=== PATIENT | female | born 1995 | race African-American/Black ===

== ENCOUNTER 2016-05-18 19:10 | Emergency (ER) | payer OTHER ==
[~2016-05-18 19:10] MED LIST: Iopamidol 370 76% 100 ML VIAL ONE
[2016-05-18 19:41] LABS: Bilirubin Negative (Negative); Blood, Urine Negative (Negative); Glucose, Urine (Dipstick) Negative (Negative); Ketone, Urine Negative (Negative); Nitrite Negative (Negative); Protein, Urine (Dipstick) Negative (Neg-Trace)
[2016-05-18 19:44] LABS: Bacteria/HPF Rare-Few HPF (None Seen); RBC/HPF None Seen HPF (0-3); WBC/HPF None Seen HPF (0-3)
[2016-05-18] MEDS ORDERED: Acetaminophen 500 MG TAB ONE (19:52)
[2016-05-18] MEDS ORDERED: Ondansetron ODT 4 MG TAB ONE (20:00)
[2016-05-18 20:37] LABS: #Basophils 0.1 thou/uL (0.0-0.2); #Eosinphils 0.5 thou/uL (0.0-0.7); #Lymphocytes 2.5 thou/uL (1.20-3.40); #Monocytes 0.4 thou/uL (0.11-0.59); #Neutrophils 1.8 thou/uL (1.40-6.50); %Basophils 2.3 % (0.0-1.0); %Eosinophils 8.6 % (0.0-10.0); %Lymphocytes 47.1 % (21.0-51.0); %Monocytes 7.6 % (0.0-10.0); Hematocrit 42.9 % (36.0-47.0); Mean Platelet Volume 6.7 fL (7.4-10.4); Red Blood Cell (RBC) Count 5.18 mill/uL (4.20-5.40); White Blood Cell (WBC) Count 5.4 thou/uL (4.8-10.8)
[2016-05-18 20:50] LABS: ALT (SGPT) 13 U/L (0-55); AST (SGOT) 15 U/L (5-34); Alkaline Phosphatase 87 U/L (40-150); Anion Gap 12 mmol/L (10-20); BUN (Urea Nitrogen) 10 mg/dL (7.0-18.7); Bilirubin, Total 0.4 mg/dL (0.2-1.2); Calc. Creatinine Clearance 0 mL/min (70-130); Calcium 9.2 mg/dL (7.8-10.44); Carbon Dioxide 22 mmol/L (22-29); Chloride 109 mmol/L (98-107); Estimated GFR-MDRD Greater than 90; Globulin 2.9 g/dL (2.4-3.5); Protein, Total 6.9 g/dL (6.0-8.3)
[2016-05-18] MEDS ORDERED: Sodium Chloride 0.9% 1,000 ML ONE (21:17)
--- NOTE | 2016-05-19 00:50 | ERRECORD ---
[facility] EMERGENCY RECORD HPI ABDOMINAL PAIN (21:42 JROB) CHIEF COMPLAINTS: Patient presents for evaluation of abdominal pain. HISTORIAN: History provided by patient, 21 year old female presents with mid abdominal pain that started yesterday evening, with nausea, vomiting and diarrhea. She reports urinary urgency. LOCATION FEMALE: Symptoms are localized, most severe periumbilical. QUALITY: aching. TIME COURSE: Gradual onset of symptoms. ASSOCIATED WITH FEMALE: No associated chills, Associated with diarrhea, No associated fever, Associated with nausea, No associated trauma, No associated recent travel, Associated with vomiting, No associated vaginal bleeding. RELIEVED BY: Patient's condition relieved by remaining still. EXACERBATED BY: Patient's condition exacerbated by movement. ROS (21:44 JROB) CONSTITUTIONAL: Historian denies chills, denies fever. EYES: Historian denies vision changes. ENT: Historian denies sore throat. CARDIOVASCULAR: Historian denies syncope. RESPIRATORY: Historian denies shortness of breath. GI: Historian reports abdominal pain, reports diarrhea, reports nausea, reports vomiting. GENITOURINARY FEMALE: Historian denies dysuria, denies vaginal bleeding. MUSCULOSKELETAL: Historian denies back pain. SKIN: Historian denies rash. NEUROLOGIC: Historian denies headache. HEMO/LYMPHATIC: Historian denies abnormal blood clotting. ALLERGIC/IMMUNOLOGIC: Historian denies frequent infections. NOTES: All systems reviewed, negative except as described above. PAST MEDICAL HISTORY MEDICAL HISTORY: Flu vaccine not up to date, Tetanus immunization up to date, No past medical history, Tetanus immunization up to date. (19:30 EPIE) FEMALE SURGICAL HISTORY: DNC, Surgical history of section. (19:30 EPIE) PSYCHIATRIC HISTORY: Psychiatric history includes, anxiety. (19:30 EPIE) SOCIAL HISTORY: Patient denies alcohol use, Patient denies drug use, Patient has no smoking history. (19:30 EPIE) FAMILY HISTORY: No known family hisotry, Family history is not significant, Family history is non-contributory to this case, Family history is non-contributory to this case. No known family hisotry, Family history is not significant, Family history is non-contributory to this case, Family history is non-contributory to this case. (19:30 EPIE) &a-1R&a+25V*p+0X*b7661J*c202B*c15G*c2P*p-0X&a-25V&a+1R Name: Melva White : 1995 F21 MedRec: [id number] AcctNum: [id number] Prepared: ThuMay 19, 2016 00:44 by Interface Page 1 of 4 pMD [facility] EMERGENCY RECORD NOTES: Nursing records reviewed, Agree with nursing records, Medication list reviewed. (21:45 JROB) KNOWN ALLERGIES No Known Drug Allergies CURRENT MEDICATIONS (19:30 EPIE) None VITAL SIGNS VITAL SIGNS: BP: 103/70, Pulse: 80, Resp: 16 (Non-Labored), Temp: 98.7 (Oral), O2 sat: 98 on Room Air, Time: 05/18/2016 19:26. (19:26 EPIE) BP: 98/61, Pulse: 71, Resp: 16 (Non-Labored), O2 sat: 100 on Room Air, Time: 05/18/2016 21:30. (21:30 EPIE) BP: 102/66, Pulse: 85, Resp: 16 (Non-Labored), O2 sat: 100 on Room Air, Time: 05/18/2016 22:00. (22:00 EPIE) BP: 93/52, Pulse: 84, Resp: 16 (Non-Labored), O2 sat: 100 on Room Air, Time: 05/18/2016 22:55. (22:55 EPIE) BP: 95/53, Pulse: 77, Resp: 16 (Non-Labored), O2 sat: 100 on Room Air, Time: 05/18/2016 23:30. (23:30 EPIE) BP: 100/63, Pulse: 80, Resp: 16, Temp: 98.6, Pain: 4, O2 sat: 100 on ra, Time: 05/19/2016 00:33. (ThuMay 19, 2016 00:33 EPIE) PHYSICAL EXAM (21:45 JROB) CONSTITUTIONAL: Vital Signs Reviewed, Patient afebrile, Pulse normal, Blood pressure, hypotensive, Respiratory rate normal, Patient appears non toxic. HEAD: Head exam normal, Head exam included findings of head atraumatic. EYES: Eye exam normal, Pupils equally round and reactive to light, Extraocular muscles intact. ENT: Pharynx exam normal, Mouth exam normal. NECK: Neck exam normal, no cervical adenopathy. RESPIRATORY CHEST: Breath sounds clear, No wheezing, No rales, No rhonchi. CARDIOVASCULAR: Cardiovascular assessment normal, Cardiovascular exam included findings of heart rate regular rate and rhythm, Heart sounds normal. ABDOMEN FEMALE: Abdominal exam included findings of abdomen tender, periumbilical, to the suprapubic region, mild intensity. BACK: Back exam normal, Back exam included findings of normal inspection, no costovertebral angle tenderness. UPPER EXTREMITY: Upper extremity exam normal, Upper extremity exam included findings of inspection normal, Motor strength normal, Sensation intact. LOWER EXTREMITY: Lower extremity exam normal, Lower extremity exam included findings of inspection normal, Motor strength normal, Sensation intact. &a-1R&a+25V*p+0X*a3662V*c202B*c15G*c2P*p-0X&a-25V&a+1R Name: Melva White : 1995 F21 MedRec: [id number] AcctNum: [id number] Prepared: ThuMay 19, 2016 00:44 by Interface Page 2 of 4 D [facility] EMERGENCY RECORD NEURO: Neuro exam findings include patient oriented to person, place and time, no focal motor deficits, no focal sensory deficits. SKIN: Skin exam included findings of skin warm, dry. RADIOLOGYINTERPRETATION (ThuMay 19, 2016 00:16 JROB) ABDOMEN: Abdomen/pelvis CT scan, with contrast shows, Other findings: right ovarian cyst, normal appendix. PLUSH WEAVER: Preliminary review of CT scans by, Radiologist. MEDICATION ADMINISTRATION SUMMARY Drug Name: *sodium chloride 0.9 % intravenous, Dose Ordered: 1 L, Route: IV Fluid Infusion, Status: Given, Time: 21:26 05/18/2016, Drug Name: *Zofran ODT, Dose Ordered: 4 mg, Route: Oral, Status: Given, Time: 20:05 05/18/2016, Drug Name: Tylenol Extra Strength, Dose Ordered: 1 g, Route: Oral, Status: Given, Time: 19:54 05/18/2016, *Additional information available in notes, Detailed record available in Medication Service section. DOCTOR NOTES TEXT: Tylenol for pain, UA negative for infection, negative. Blood pressure low but patient appears well, non-septic. Ordered IV fluids, labs, CT abd. (21:46 JROB) Discussed results with the patient. CT shows right sided ovarian cyst, which may account for her symptoms. Will d/c home with analgesia to follow up with PMD. (ThuMay 19, 2016 00:17 JROB) PATIENT STATUS: Patient has improved since arrival to emergency department. (ThuMay 19, 2016 00:17 JROB) PATIENT PLAN: The patient will be discharged, The patient will follow up with primary care physician. (ThuMay 19, 2016 00:17 JROB) DATA REVIEWED: Lab data reviewed, Xray data reviewed. (ThuMay 19, 2016 00:17 JROB) PROBLEM LIST No recorded problems DIAGNOSIS DIFFERENTIAL: Based on history, exam and ancillary studies if indicated: Impression: abdominal pain of unclear etiology, Impression: appendicitis, Impression: constipation, Impression: , Impression: ectopic , Impression: ovarian cyst, Impression: ruptured ovarian cyst, Diagnoses considered are not limited to those documented above. (ThuMay 19, 2016 00:18 JROB) FINAL: PRIMARY: UNSPECIFIED OVARIAN CYSTS. (ThuMay 19, 2016 00:25 JROB) PRESCRIPTION Ultram: TABLET : 50 mg : ORAL : Quantity: 1 Unit: tab(s) &a-1R&a+25V*p+0X*x3078J*c202B*c15G*c2P*p-0X&a-25V&a+1R Name: Melva White : 1995 F21 MedRec: [id number] AcctNum: [id number] Prepared: ThuMay 19, 2016 00:44 by Interface Page 3 of 4 pMD [facility] EMERGENCY RECORD Route: ORAL Schedule: every 6 hours PRN Dispense: 12 Unit: tab(s) May substitute. Refills: No Refills . (ThuMay 19, 2016 00:19 JROB) NOTES: No Refills. (ThuMay 19, 2016 00:19 JROB) Zofran ODT: TABLET,DISINTEGRATING : 4 mg : ORAL : Quantity: 1 Unit: tab(s) Route: ORAL Schedule: every 6 hours PRN Dispense: 12 Unit: tab(s) May substitute. Refills: No Refills . (ThuMay 19, 2016 00:20 JROB) NOTES: No Refills. (ThuMay 19, 2016 00:20 JROB) DISPOSITION PATIENT: Disposition Type: Discharge, Disposition: *Discharge Home. (ThuMay 19, 2016 00:25 JROB) Patient left the department. (ThuMay 19, 2016 00:37 EPIE) Marte: EPIE=SUREKHA Grier, Mariaa JROB=MD Maikol, Jez &a-1R&a+25V*p+0X*o8866B*c202B*c15G*c2P*p-0X&a-25V&a+1R Name: Melva White : 1995 F21 MedRec: [id number] AcctNum: [id number] Prepared: ThuMay 19, 2016 00:44 by Interface Page 4 of 4 pMD MTDD
--- NOTE | 2016-05-19 01:02 | PICIS ---
[facility] EMERGENCY RECORD TRIAGE (ThuMay 18, 2016 19:29 EPIE) TRIAGE NOTES: Pt states that she stomach pain starting at 1700 yesterday. Pt N/V/D yesterday. Reports urinary urgency. (ThuMay 18, 2016 19:29 EPIE) PATIENT: NAME: Melva White, AGE: 21, GENDER: female, : Sat 1995, TIME OF GREET: ThuMay 18, 2016 19:12, PREFERRED LANGUAGE: Lebanese, ETHNICITY: Not or , ECODE BILLING MAP: [facility] ER, SSN: [id number], Zip Code: [address], KG WEIGHT: 74.84, PHONE: , , , PERSON ID: [id number], PCP: Jf TONEY JAIME. (ThuMay 18, 2016 19:29 EPIE) COMPLAINT: Abdominal Pain. (ThuMay 18, 2016 19:29 EPIE) ADMISSION: URGENCY: 3 Urgent, ADMISSION SOURCE: Home, TRANSPORT: CAR, BED: TRIAGE. (ThuMay 18, 2016 19:29 EPIE) TRIAGE SCREENING: Patient denies suicidal ideation, Patient denies presence of domestic violence. (19:30 EPIE) TREATMENTS IN PROGRESS: Treatments given Prehospital: none. (19:30 EPIE) PROVIDERS: TRIAGE NURSE: Mariaa Grier RN. ([place] May 18, 2016 19:29 EPIE) VITAL SIGNS: BP 103/70, Pulse 80, Resp 16, (Non-Labored), Temp 98.7, (Oral), O2 Sat 98, on Room Air, Time 05/18/2016 19:26. (19:26 EPIE) PREVIOUS VISIT ALLERGIES: No Known Drug Allergies. (ThuMay 18, 2016 19:29 EPIE) No Known Drug Allergies. (19:30 EPIE) KNOWN ALLERGIES No Known Drug Allergies CURRENT MEDICATIONS (19:30 EPIE) None VITAL SIGNS VITAL SIGNS: BP: 103/70, Pulse: 80, Resp: 16 (Non-Labored), Temp: 98.7 (Oral), O2 sat: 98 on Room Air, Time: 05/18/2016 19:26. (19:26 EPIE) BP: 98/61, Pulse: 71, Resp: 16 (Non-Labored), O2 sat: 100 on Room Air, Time: 05/18/2016 21:30. (21:30 EPIE) BP: 102/66, Pulse: 85, Resp: 16 (Non-Labored), O2 sat: 100 on Room Air, Time: 05/18/2016 22:00. (22:00 EPIE) BP: 93/52, Pulse: 84, Resp: 16 (Non-Labored), O2 sat: 100 on Room Air, Time: 05/18/2016 22:55. (22:55 EPIE) BP: 95/53, Pulse: 77, Resp: 16 (Non-Labored), O2 sat: 100 on Room Air, Time: 05/18/2016 23:30. (23:30 EPIE) BP: 100/63, Pulse: 80, Resp: 16, Temp: 98.6, Pain: 4, O2 sat: 100 on ra, Time: 05/19/2016 00:33. (ThuMay 19, 2016 00:33 EPIE) NURSING ASSESSMENT: ABDOMEN (19:31 EPIE) CONSTITUTIONAL: Patient arrives ambulatory, Gait steady, History &a-1R&a+25V*p+0X*[id number]*c202B*c15G*c2P*p-0X&a-25V&a+1R Name: Melva White : 1995 F21 MedRec: [id number] AcctNum: [id number] Prepared: ThuMay 19, 2016 00:51 by Interface Page 1 of 11 pMD [facility] EMERGENCY RECORD obtained from patient, Patient appears, uncomfortable, Patient cooperative, Patient alert, Oriented to person, place and time, Skin warm, Skin dry, Skin normal in color, Mucous membranes pink, Mucous membranes moist, Patient is well-groomed, Pt states that she stomach pain starting at 1700 yesterday. Pt N/V/D yesterday. Reports urinary urgency. PAIN: aching pain, sharp pain, to the suprapubic region, Onset of pain 05/18/2016 1700, on a scale 0-10 patient rates pain as 7, Pain exacerbated by nothing, Nothing has been tried to alleviate the pain. ABDOMEN: Abdomen assessment findings include abdomen symmetrical, Abdomen soft, Associated with nausea, Associated with vomiting, history of vomiting, Associated with diarrhea. GENITOURINARY FEMALE: Associated with urinary complaints, frequency, urgency. NURSING PROCEDURE: DISCHARGE NOTE (ThuMay 19, 2016 00:33 EPIE) DISCHARGE: Patient discharged to home, ambulating without assistance, driving self, unaccompanied, Summary of Care printed/ provided, Discharge instructions given to patient, Simple or moderate discharge teaching performed, Prescriptions given and instructions on side effects given, Name of prescription(s) given: ultram, zofran odt, Above person(s) verbalized understanding of discharge instructions and follow-up care. BELONGINGS: Belongings and valuables with patient upon arrival to the Emergency Department include:, Belongings and valuables with patient at time of discharge include:, Belongings remain with patient, Valuables remain with patient. VITAL SIGNS: BP: 100, / 63, Pulse: 80, Resp: 16, Temp: 98.6, Pain: 4, O2 sat: 100, on: ra. NURSING PROCEDURE: IV PATIENT IDENITIFIER: Patient actively involved in identification process, Patient's identity verified by patient stating name, Patient's identity verified by hospital ID bracelet. (20:31 EPIE) IV SITE 1: IV established, to the right antecubital, using a 20 gauge catheter, in one attempt, IV site prepped with chloroprep, Saline lock established, Flushed with normal saline (mls): 10, Labs drawn at time of placement, labeled in the presence of the patient and sent to lab. (20:31 EPIE) FOLLOW-UP SITE 1: After procedure, no drainage at IV site, After procedure, no swelling at IV site, After procedure, no redness at IV site. (20:31 EPIE) NOTES: Notes: IV DC with catheter intact. Pressure and dressing applied. (ThuMay 19, 2016 00:32 EPIE) NURSING PROCEDURE: NURSE NOTES NURSES NOTES: Notes: Pt reports nausea. ERMD make aware and Zofran odt given at this time. RR even and unlabored. NAD. Awaiting &a-1R&a+25V*p+0X*z1391S*c202B*c15G*c2P*p-0X&a-25V&a+1R Name: Melva White : 1995 F21 MedRec: [id number] AcctNum: [id number] Prepared: ThuMay 19, 2016 00:51 by Interface Page 2 of 11 pMD [facility] EMERGENCY RECORD ERMD next order for patient. (20:04 EPIE) Notes: ERMD talking with patient at this time. (20:16 EPIE) Notes: Patient resting withRR even and unlabored. No new complaints at this time. Pt drinking contrast at this time. VSS. IVF infusing at this time. (21:30 EPIE) Notes: Pt ambulated to the bathroom with a steady gait. RR even and unlabored. (22:27 EPIE) Notes: Patient resting with RR even and unlabored. No new complaints at this time. Awaiting ERMD to talk with patient. (23:44 EPIE) NURSING PROCEDURE: TRANSPORT TO TESTS PATIENT IDENTIFIER: Patient actively involved in identification process, Patient's identity verified by patient stating name, Patient's identity verified by patient stating date. (22:45 KASA) Patient actively involved in identification process. (22:40 KHER) TRANSPORT TO TESTS: Transport indicated to facilitate diagnosis, Patient transported to CT scan, via cart, Accompanied by x-ray ballistic technician. (22:45 KASA) Transport indicated to facilitate diagnosis, Patient transported to CT scan, via cart, Accompanied by x-ray ballistic technician, Patient arrived in location at 2241, Patient departed location at 2259. (22:40 KHER) FOLLOW-UP: After procedure, patient returned to emergency department. (22:55 EPIE) After procedure, patient returned to emergency department. (22:40 KHER) SAFETY: Side rails up, Cart/Stretcher in lowest position, Call light within reach, Hospital ID band on. (22:45 KASA) Side rails up, Cart/Stretcher in lowest position, Call light within reach, Hospital ID band on. (22:40 KHER) NURSING PROCEDURE: URINE COLLECTION (19:39 EPIE) PATIENT IDENTIFIER: Patient actively involved in identification process, Patient's identity verified by patient stating name, Patient's identity verified by hospital ID bracelet. URINE COLLECTION FEMALE: Urine collected by mid-stream clean catch, Output amount (mL) 70, urine yellow in color, and cloudy, Specimen labeled in the presence of the patient and sent to lab. ORDER DETAILS Order Name: CBC with Differential, Status: Active, Time: 20:18 05/18/2016, User: NINFA, - Ordered for: MD Lassiter Joseph, - Entered by: MD Lassiter Joseph - Sun May 18, 2016 20:18, - Quantity: 1, Order Name: Comprehensive Metabolic Panel, Status: Active, Time: 20:18 05/18/2016, User: NINFA, - Ordered for: MD Lassiter Joseph, - Entered by: MD Lassiter Joseph - Sun May 18, 2016 20:18, &a-1R&a+25V*p+0X*n0446E*c202B*c15G*c2P*p-0X&a-25V&a+1R Name: Melva White : 1995 F21 MedRec: [id number] AcctNum: [id number] Prepared: ThuMay 19, 2016 00:51 by Interface Page 3 of 11 [facility] EMERGENCY RECORD - Quantity: 1, Order Name: CT Abdomen Pelvis W Con, Status: Active, Time: 20:18 05/18/2016, User: NINFA, - Ordered for: MD Lassiter Joseph, - Entered by: MD Lassiter Joseph - Sun May 18, 2016 20:18, - Quantity: 1, Order Name: Test, Urine (BHCG), Status: Active, Time: 19:47 05/18/2016, User: KYLIE, - Ordered for: MD Lassiter Joseph, - Entered by: SUREKHA Grier Emily - Sun May 18, 2016 19:47, - Quantity: 1, Order Name: SALINE LOCK, Status: Done, Time: 20:30 05/18/2016, User: KYLIE, - Ordered for: MD Lassiter Joseph, - Entered by: MD Lassiter Joseph - Sun May 18, 2016 20:18, - Quantity: 1, Order Name: Urinalysis with Microscopic, Status: Active, Time: 19:31 05/18/2016, User: KYLIE, - Ordered for: MD Lassiter Joseph, - Entered by: SUREKHA Grier Emily - [place] May 18, 2016 19:31, - Quantity: 1. MEDICATION ADMINISTRATION SUMMARY Drug Name: *sodium chloride 0.9 % intravenous, Dose Ordered: 1 L, Route: IV Fluid Infusion, Status: Given, Time: 21:26 05/18/2016, Drug Name: *Zofran ODT, Dose Ordered: 4 mg, Route: Oral, Status: Given, Time: 20:05 05/18/2016, Drug Name: Tylenol Extra Strength, Dose Ordered: 1 g, Route: Oral, Status: Given, Time: 19:54 05/18/2016, *Additional information available in notes, Detailed record available in Medication Service section. MEDICATION SERVICE sodium chloride 0.9 % intravenous: Order: sodium chloride 0.9 % intravenous (0.9 % sodium chloride) - Dose: 1 L : IV Fluid Infusion Schedule: Bolus Notes: (Bolus) Ordered by: Jez Lassiter MD Entered by: MD Luba Tran May 18, 2016 21:17 Documented as given by: Wilson Cuevas RN [place] May 18, 2016 21:26 Patient, Medication, Dose, Route and Time verified prior to administration. Amount given: 1L, IV SITE #1 IV fluids established for hydration, IV SITE #1 into right antecubital, IV SITE #1 1st bag hung, amount 1 Liter hung, IV SITE #1 bolus of 1000 ml established, via primary tubing, Catheter placement confirmed via flush prior to administration, IV site without signs or symptoms of infiltration during medication administration, No swelling during administration, &a-1R&a+25V*p+0X*q1390E*c202B*c15G*c2P*p-0X&a-25V&a+1R Name: Melva White Woody : 1995 F21 MedRec: [id number] AcctNum: [id number] Prepared: ThuMay 19, 2016 00:51 by Interface Page 4 of 11 pMD [facility] EMERGENCY RECORD No drainage during administration, IV flushed after administration, Correct patient, time, route, dose and medication confirmed prior to administration, Patient advised of actions and side-effects prior to administration, Allergies confirmed and medications reviewed prior to administration. : Follow Up : Response assessment performed, No signs or symptoms of allergic reaction noted, _IV SITE #1:_, IV fluid infusion discontinued, on ThuMay 18, 2016 23:01, Total fluid hydration time IV site 1 1 hour, 35 minutes, ., Total amount infused: 1L, IV Line flushed after administration. (23:01 EPIE) Tylenol Extra Strength: Order: Tylenol Extra Strength (acetaminophen) - Dose: 1 g : Oral Schedule: Now Ordered by: Jez Lassiter MD Entered by: MD Luba Tran May 18, 2016 19:49 , Acknowledged by: SUREKHA Macias May 18, 2016 19:51 Documented as given by: SUREKHA Macias May 18, 2016 19:54 Patient, Medication, Dose, Route and Time verified prior to administration. Amount given: 1g, Site: Medication administered P.O., Correct patient, time, route, dose and medication confirmed prior to administration, Patient advised of actions and side-effects prior to administration, Allergies confirmed and medications reviewed prior to administration. Zofran ODT: Order: Zofran ODT (ondansetron) - Dose: 4 mg : Oral Schedule: Now Notes: Verbal Order Ordered by: Jez Lassiter MD Entered by: SUREKHA Macias May 18, 2016 20:05 Documented as given by: SUREKHA Macias May 18, 2016 20:05 Patient, Medication, Dose, Route and Time verified prior to administration. Amount given: 4mg, Site: Medication administered S.L., Correct patient, time, route, dose and medication confirmed prior to administration, Patient advised of actions and side-effects prior to administration, Allergies confirmed and medications reviewed prior to administration. HPI ABDOMINAL PAIN (21:42 JROB) CHIEF COMPLAINTS: Patient presents for evaluation of abdominal pain. HISTORIAN: History provided by patient, 21 year old female presents with mid abdominal pain that started yesterday evening, with nausea, vomiting and diarrhea. She reports urinary urgency. LOCATION FEMALE: Symptoms are localized, most severe periumbilical. QUALITY: aching. TIME COURSE: Gradual onset of symptoms. ASSOCIATED WITH FEMALE: No associated chills, Associated with diarrhea, No associated fever, Associated with nausea, &a-1R&a+25V*p+0X*j1705P*c202B*c15G*c2P*p-0X&a-25V&a+1R Name: Melva White : 1995 F21 MedRec: [id number] AcctNum: [id number] Prepared: ThuMay 19, 2016 00:51 by Interface Page 5 of 11 pMD [facility] EMERGENCY RECORD No associated trauma, No associated recent travel, Associated with vomiting, No associated vaginal bleeding. RELIEVED BY: Patient's condition relieved by remaining still. EXACERBATED BY: Patient's condition exacerbated by movement. ROS (21:44 JROB) CONSTITUTIONAL: Historian denies chills, denies fever. EYES: Historian denies vision changes. ENT: Historian denies sore throat. CARDIOVASCULAR: Historian denies syncope. RESPIRATORY: Historian denies shortness of breath. GI: Historian reports abdominal pain, reports diarrhea, reports nausea, reports vomiting. GENITOURINARY FEMALE: Historian denies dysuria, denies vaginal bleeding. MUSCULOSKELETAL: Historian denies back pain. SKIN: Historian denies rash. NEUROLOGIC: Historian denies headache. HEMO/LYMPHATIC: Historian denies abnormal blood clotting. ALLERGIC/IMMUNOLOGIC: Historian denies frequent infections. NOTES: All systems reviewed, negative except as described above. PAST MEDICAL HISTORY MEDICAL HISTORY: Flu vaccine not up to date, Tetanus immunization up to date, No past medical history, Tetanus immunization up to date. (19:30 EPIE) FEMALE SURGICAL HISTORY: DNC, Surgical history of section. (19:30 EPIE) PSYCHIATRIC HISTORY: Psychiatric history includes, anxiety. (19:30 EPIE) SOCIAL HISTORY: Patient denies alcohol use, Patient denies drug use, Patient has no smoking history. (19:30 EPIE) FAMILY HISTORY: No known family hisotry, Family history is not significant, Family history is non-contributory to this case, Family history is non-contributory to this case. No known family hisotry, Family history is not significant, Family history is non-contributory to this case, Family history is non-contributory to this case. (19:30 EPIE) NOTES: Nursing records reviewed, Agree with nursing records, Medication list reviewed. (21:45 JROB) PHYSICAL EXAM (21:45 JROB) CONSTITUTIONAL: Vital Signs Reviewed, Patient afebrile, Pulse normal, Blood pressure, hypotensive, Respiratory rate normal, Patient appears non toxic. HEAD: Head exam normal, Head exam included findings of head atraumatic. EYES: Eye exam normal, Pupils equally round and reactive to light, Extraocular muscles intact. &a-1R&a+25V*p+0X*l8883W*c202B*c15G*c2P*p-0X&a-25V&a+1R Name: Melva White : 1995 F21 MedRec: [id number] AcctNum: [id number] Prepared: ThuMay 19, 2016 00:51 by Interface Page 6 of 11 [facility] EMERGENCY RECORD ENT: Pharynx exam normal, Mouth exam normal. NECK: Neck exam normal, no cervical adenopathy. RESPIRATORY CHEST: Breath sounds clear, No wheezing, No rales, No rhonchi. CARDIOVASCULAR: Cardiovascular assessment normal, Cardiovascular exam included findings of heart rate regular rate and rhythm, Heart sounds normal. ABDOMEN FEMALE: Abdominal exam included findings of abdomen tender, periumbilical, to the suprapubic region, mild intensity. BACK: Back exam normal, Back exam included findings of normal inspection, no costovertebral angle tenderness. UPPER EXTREMITY: Upper extremity exam normal, Upper extremity exam included findings of inspection normal, Motor strength normal, Sensation intact. LOWER EXTREMITY: Lower extremity exam normal, Lower extremity exam included findings of inspection normal, Motor strength normal, Sensation intact. NEURO: Neuro exam findings include patient oriented to person, place and time, no focal motor deficits, no focal sensory deficits. SKIN: Skin exam included findings of skin warm, dry. LAB INTERPRETATION (ThuMay 19, 2016 00:16 JROB) INTERPRETATION: I reviewed the lab results, CBC normal, Chemistry abnormal, Chloride elevated, Liver functions normal, Urinalysis normal, Urine HCG negative. EVENTS TRANSFER: Triage to Emergency Triage. (ThuMay 18, 2016 19:29 EPIE) Emergency Triage to Holding. (19:47 EPIE) Emergency Holding to Emergency Room -04. (21:17 EPIE) Removed from Emergency Emergency Room -04. (ThuMay 19, 2016 00:37 EPIE) RADIOLOGYINTERPRETATION (ThuMay 19, 2016 00:16 JROB) ABDOMEN: Abdomen/pelvis CT scan, with contrast shows, Other findings: right ovarian cyst, normal appendix. PLASTIC EXTRUDING MACHINE OPERATOR: Preliminary review of CT scans by, Radiologist. O2SAT INTERPRETATION (21:46 JROB) O2SAT: Single pulse oximetry, Oxygen saturation 100%, on room air, Oxygen saturation interpretation: Normal, No intervention required. DOCTOR NOTES TEXT: Tylenol for pain, UA negative for infection, negative. Blood pressure low but patient appears well, non-septic. Ordered IV fluids, labs, CT abd. (21:46 JROB) Discussed results with the patient. CT shows right sided ovarian cyst, which may account for her symptoms. Will d/c home with &a-1R&a+25V*p+0X*w0656L*c202B*c15G*c2P*p-0X&a-25V&a+1R Name: Melva White : 1995 F21 MedRec: [id number] AcctNum: [id number] Prepared: ThuMay 19, 2016 00:51 by Interface Page 7 of 11 pMD [facility] EMERGENCY RECORD analgesia to follow up with PMD. (ThuMay 19, 2016 00:17 JROB) PATIENT STATUS: Patient has improved since arrival to emergency department. (ThuMay 19, 2016 00:17 JROB) PATIENT PLAN: The patient will be discharged, The patient will follow up with primary care physician. (ThuMay 19, 2016 00:17 JROB) DATA REVIEWED: Lab data reviewed, Xray data reviewed. (ThuMay 19, 2016 00:17 JROB) PROBLEM LIST No recorded problems DIAGNOSIS DIFFERENTIAL: Based on history, exam and ancillary studies if indicated: Impression: abdominal pain of unclear etiology, Impression: appendicitis, Impression: constipation, Impression: , Impression: ectopic , Impression: ovarian cyst, Impression: ruptured ovarian cyst, Diagnoses considered are not limited to those documented above. (ThuMay 19, 2016 00:18 JROB) FINAL: PRIMARY: UNSPECIFIED OVARIAN CYSTS. (ThuMay 19, 2016 00:25 JROB) DISPOSITION PATIENT: Disposition Type: Discharge, Disposition: *Discharge Home. (ThuMay 19, 2016 00:25 JROB) Patient left the department. (ThuMay 19, 2016 00:37 EPIE) INSTRUCTION (ThuMay 19, 2016 00:26 JROB) DISCHARGE: OVARIAN CYST. PHARMACY: Melina Tamayo. FOLLOWUP: Jf TONEY, [address] [address], [phone], Follow up with Primary Care Physician in 3-4 days. SPECIAL: Follow-up with your PCP We hope you feel better soon! We are always happy to take care of you and your family! Return to the ER immediately for any new, concerning, or worsening symptoms. PRESCRIPTION Ultram: TABLET : 50 mg : ORAL : Quantity: 1 Unit: tab(s) Route: ORAL Schedule: every 6 hours PRN Dispense: 12 Unit: tab(s) May substitute. Refills: No Refills . (ThuMay 19, 2016 00:19 JROB) NOTES: No Refills. (ThuMay 19, 2016 00:19 JROB) Zofran ODT: TABLET,DISINTEGRATING : 4 mg : ORAL : Quantity: 1 Unit: tab(s) Route: ORAL Schedule: every 6 hours PRN Dispense: 12 Unit: tab(s) May substitute. Refills: No Refills . (ThuMay 19, 2016 00:20 JROB) &a-1R&a+25V*p+0X*f1227Y*c202B*c15G*c2P*p-0X&a-25V&a+1R Name: Melva White : 1995 F21 MedRec: [id number] AcctNum: [id number] Prepared: ThuMay 19, 2016 00:51 by Interface Page 8 of 11 D [facility] EMERGENCY RECORD NOTES: No Refills. (ThuMay 19, 2016 00:20 JROB) IMAGING *DISCHARGE INSTRUCTIONS RECEIPT: Image captured from scanner. (ThuMay 19, 2016 00:36 EPIE) *SUPPLY CHARGE SHEET: Image captured from scanner. (ThuMay 19, 2016 00:37 EPIE) ADMIN (ThuMay 19, 2016 00:26 JROB) DIGITAL SIGNATURE: MD Maikol, Jez. RESULTS LABORATORY: Urinalysis with Microscopic Collection DT: L[place] May 18, 2016 19:37, Color Yellow , Range (Yellow), Clarity Clear , Range (Clear), Specific Thorpe, Urine 1.025 , Range (1.005-1.030), pH, Urine 7.0 , Range (5.0-9.0), Leukocyte Negative , Range (Negative), Nitrite Negative , Range (Negative), Protein, Urine (Dipstick) Negative mg/dL, Range (Neg-Trace), Glucose, Urine (Dipstick) Negative mg/dL, Range (Negative), Ketone, Urine Negative mg/dL, Range (Negative), Urobilinogen 1.0 mg/dL, Range (0.2-1.0), Bilirubin Negative , Range (Negative), Blood, Urine Negative , Range (Negative), RBC/HPF None Seen HPF, Range (0-3), WBC/HPF None Seen HPF, Range (0-3), *Squamous Epithelial 4-6 - H HPF, Range (0-3), Bacteria/HPF Rare-Few HPF, Range (None Seen). (19:49 JROB) Test, Urine (BHCG) Collection DT: Luba May 18, 2016 19:53, Test - Urine (BHCG) NEGATIVE , Range (NEGATIVE), Method of sensitivity- Indeterminant: results should be repeated, after 48 hours. Positive: results may be detected as early as 4-5 days before a first missed menses. Elimination of BHCG-, Elimination following first trimester D&C: 29-44 Days , Elimination following term : 8-24 Days , Specific Thorpe 1.025 , Range (1.002-1.036), A dilute urine specimen may, not contain associate financial representative levels of hCG. If is still, suspected, a first morning urine specimen OR a random blood specimen should, be obtained from the patient 48-72 hours later and re-tested. &a-1R&a+25V*p+0X*n0580H*c202B*c15G*c2P*p-0X&a-25V&a+1R Name: Melva White : 1995 F21 MedRec: [id number] AcctNum: [id number] Prepared: ThuMay 19, 2016 00:51 by Interface Page 9 of 11 pMD [facility] EMERGENCY RECORD , . (20:09 JROB) CBC with Differential Collection DT: Luba May 18, 2016 20:28, White Blood Cell (WBC) Count 5.4 thou/uL, Range (4.8-10.8), Red Blood Cell (RBC) Count 5.18 mill/uL, Range (4.20-5.40), Hemoglobin 14.0 g/dL, Range (12.0-16.0), Hematocrit 42.9 %, Range (36.0-47.0), Mean Corpuscular Volume 82.9 fl, Range (81.0-99.0), Mean Corpuscular Hemoglobin 27.0 pg, Range (27.0-31.0), Mean Corpuscular HGB CONC 32.6 g/dL, Range (32.0-36.0), *RBC Distribution Width 11.4 - L %, Range (11.5-14.5), Platelet Count 306 thou/uL, Range (130-400), *Mean Platelet Volume 6.7 - L fL, Range (7.4-10.4), *%Neutrophils 34.4 - L %, Range (42.0-75.0), %Lymphocytes 47.1 %, Range (21.0-51.0), %Monocytes 7.6 %, Range (0.0-10.0), %Eosinophils 8.6 %, Range (0.0-10.0), *%Basophils 2.3 - H %, Range (0.0-1.0), #Neutrophils 1.8 thou/uL, Range (1.40-6.50), #Lymphocytes 2.5 thou/uL, Range (1.20-3.40), #Monocytes 0.4 thou/uL, Range (0.11-0.59), #Eosinphils 0.5 thou/uL, Range (0.0-0.7), #Basophils 0.1 thou/uL, Range (0.0-0.2). (20:46 JROB) Comprehensive Metabolic Panel Collection DT: Luba May 18, 2016 20:28, Sodium 139 mmol/L, Range (136-145), Potassium 3.6 mmol/L, Range (3.5-5.1), *Chloride 109 - H mmol/L, Range (98-107), Carbon Dioxide 22 mmol/L, Range (22-29), Anion Gap 12 mmol/L, Range (10-20), BUN (Urea Nitrogen) 10 mg/dL, Range (7.0-18.7), Creatinine 0.81 mg/dL, Range (0.6-1.1), Estimated GFR-MDRD Greater than 90 , Reference Range for Estimated GFR: Greater than 90, mL/min/1.73 m2 NOTE: The MDRD equation has not been validated for use, with the elderly (over 70 years of age), women, patients with, serious comorbid condition or persons with extremes of body size, muscle, mass, or nutritional status. , Glucose 81 mg/dL, Range (70-105), Calcium 9.2 mg/dL, Range (7.8-10.44), Bilirubin, Total 0.4 mg/dL, Range (0.2-1.2), Protein, Total 6.9 g/dL, Range (6.0-8.3), NOTE: Plasma values are generally 0.3 to 0.5 g/dL higher than serum values, due to the presence of fibrinogen. , Albumin 4.0 g/dL, Range (3.5-5.0), Globulin 2.9 g/dL, Range (2.4-3.5), Alb/Glob Ratio 1.4 g/dL, Range (1.2-2.2), Alkaline Phosphatase 87 U/L, Range (40-150), AST (SGOT) 15 U/L, Range (5-34), &a-1R&a+25V*p+0X*d4721C*c202B*c15G*c2P*p-0X&a-25V&a+1R Name: Melva White Woody : 1995 F21 MedRec: [id number] AcctNum: [id number] Prepared: ThuMay 19, 2016 00:51 by Interface Page 10 of 11 pMD [facility] EMERGENCY RECORD ALT (SGPT) 13 U/L, Range (0-55). (21:31 JRIFTIKHAR) Marte: KYLIE=SUREKHA Grier, Mariaa OCASIO=MD Maikol, Jez LOPEZ=SUREKHA Goss, Kaleigh JORGE=TINA Khan Kayce &a-1R&a+25V*p+0X*j2492M*c202B*c15G*c2P*p-0X&a-25V&a+1R Name: Melav White : 1995 F21 MedRec: [id number] AcctNum: [id number] Prepared: ThuMay 19, 2016 00:51 by Interface Page 11 of 11 pMD MTDD
--- NOTE | 2016-05-19 07:51 | CT ---
CT OF ABDOMEN AND PELVIS: DATE: 05/18/16. COMPARISON: None. HISTORY: Mid abdominal pain, nausea, vomiting, and diarrhea. TECHNIQUE: Serial axial CT imaging at 5 mm intervals from lung bases through pubic symphysis with intravenous a nd oral contrast. Coronal reformatted imaging obtained. FINDINGS: The imaged lung bases are unremarkable. No free intraperitoneal air noted. Liver, spleen, pancreas, adrenal glands, gallbladder, and kidneys appear grossly unremarkable. There is a low-density lesion in the right hemipelvis with Hounsfield units of approximately 35-40, measuring 3.8 cm, suggesting a nonspecific low-density adnexal lesion on the right. There is no evidence for bowel obstruction or focal bowel inflammatory change. The appendix appears grossly unremarkable. No lymphadenopathy is apparent. No acute osseous abnormality is seen. Vascular structures of abdom en/pelvis appear patent. IMPRESSION: Nonspecific low-density lesion in the right hemipelvis measures up to 3.8 cm, likely adnexal in natu re. This could represent an adnexal cyst, probably complex/hemorrhagic. Alternative consideration includes tubo-ovarian abscess or sequelae of ectopic . test advised. POS: ANTONIO
== END 2016-05-19 00:33 | disposition home or self-care (01) ==
LOC: NAV ERS 19:10
DX: N83.209 Unspecified ovarian cyst, unspecified side (principal); F41.9 Anxiety disorder, unspecified
CPT/HCPCS: 74177; 80053; 81001; 81025; 85025; 96360; 96361; J7050; Q0162

== ENCOUNTER 2016-05-29 11:20 | Emergency (ER) | payer OTHER ==
[2016-05-29] MEDS ORDERED: Oxymetazoline HCl 0.05% ( 15 ML ) ONE (11:34)
--- NOTE | 2016-05-29 11:53 | ERRECORD ---
[facility] EMERGENCY RECORD HPI FLU-LIKE SYNDROME (11:35 BLEW) CHIEF COMPLAINT: Patient presents for evaluation of body aches, Patient presents for evaluation of fatigue, Patient presents for evaluation of fever, subjective. HISTORIAN: History provided by patient. LOCATION: Symptoms are generalized. SEVERITY: Maximum severity of symptoms moderate, Currently symptoms are moderate. TIME COURSE: Gradual onset of symptoms, are constant. ASSOCIATED WITH: Associated with cough, non-productive, Associated with headache. EXACERBATED BY: Patient's condition exacerbated by nothing. RELIEVED BY: Patient's condition relieved by over the counter medications, antipyretics (transiently). ROS (11:35 BLEW) CONSTITUTIONAL: Negative constitutional review of systems. EYES: Negative eye review of systems. ENT: Negative ears, nose, throat review of systems. CARDIOVASCULAR: Negative cardiovascular review of systems. RESPIRATORY: Negative respiratory review of systems. GI: Negative gastrointestinal review of systems. MUSCULOSKELETAL: Negative musculoskeletal review of systems. SKIN: Negative skin review of systems. PSYCHIATRIC: Negative psychiatric review of systems. NOTES: All other ROS is negative except as listed in HPI. PAST MEDICAL HISTORY MEDICAL HISTORY: Flu vaccine not up to date, Tetanus immunization up to date, No past medical history. (11:25 BDON) FEMALE SURGICAL HISTORY: DNC, Surgical history of section. (11:25 BDON) PSYCHIATRIC HISTORY: Psychiatric history includes, anxiety. (11:25 BDON) SOCIAL HISTORY: Patient denies alcohol use, Patient denies drug use, Patient has no smoking history. (11:25 BDON) FAMILY HISTORY: No known family hisotry, Family history is not significant, Family history is non-contributory to this case, Family history is non-contributory to this case. No known family hisotry, Family history is not significant, Family history is non-contributory to this case, Family history is non-contributory to this case. (11:25 BDON) NOTES: I have reviewed and agree with the PMH/PSxH/FamHx/SocHx obtained by the nurse. (11:35 BLEW) KNOWN ALLERGIES No Known Drug Allergies CURRENT MEDICATIONS (11:23 BDON) &a-1R&a+25V*p+0X*r2482T*c202B*c15G*c2P*p-0X&a-25V&a+1R Name: Melva White : 1995 F21 MedRec: [id number] AcctNum: [id number] Prepared: Therese May 29, 2016 16:15 by Interface Page [address] [facility] EMERGENCY RECORD None VITAL SIGNS (11:23 BDON) VITAL SIGNS: BP: 111/70, Pulse: 95, Resp: 18, Temp: 98.7 (Oral), Pain: 2, O2 sat: 99, Time: 05/29/2016 11:23. PHYSICAL EXAM (11:35 BLEW) CONSTITUTIONAL: Vital signs reviewed, Patient afebrile, Pulse normal, Blood pressure normal, Respiratory rate normal, Patient appears non toxic, Patient appears pain free, Patient alert and oriented to person, place and time. HEAD: Head exam included findings of head atraumatic, normocephalic. EYES: Eye exam included findings of eyelids normal to inspection, Pupils equally round and reactive to light, Extraocular muscles intact. ENT: ENT exam normal, Nose exam included findings of, Nasal congestion noted., Pharynx, Mild erythema, Uvula exam normal. NECK: Neck exam included findings of normal range of motion, Trachea midline. RESPIRATORY CHEST: Respiratory exam included findings of no respiratory distress, Breath sounds clear, Chest exam included findings of chest movement symmetrical, Chest expansion equal. CARDIOVASCULAR: Cardiovascular exam included findings of heart rate regular rate and rhythm, Heart sounds normal. NEURO: Neuro exam findings include patient oriented to person, place and time, Speech normal. PSYCHIATRIC: Psychiatric exam included findings of patient oriented to person place and time, Normal affect. MEDICATION ADMINISTRATION SUMMARY Drug Name: Afrin Sinus, Dose Ordered: 2 spray(s), Route: Nares Both, Status: Given, Time: 11:37 05/29/2016, Detailed record available in Medication Service section. DOCTOR NOTES (11:35 BLEW) TEXT: Pt is well hydrated, non-toxic, and tolerating PO's. Pt is suitable for O/P treatment with PCP f/u. PROBLEM LIST No recorded problems DIAGNOSIS (11:36 BLEW) FINAL: PRIMARY: influenza like illness. PRESCRIPTION (11:36 BLEW) Motrin: TABLET : 800 mg : ORAL : Quantity: 1 Unit: tab(s) Route: ORAL Schedule: 3 times a day Dispense: 24 &a-1R&a+25V*p+0X*w9190Z*c202B*c15G*c2P*p-0X&a-25V&a+1R Name: Melva White : 1995 1 MedRec: [id number] AcctNum: [id number] Prepared: Therese May 29, 2016 16:15 by Interface Page [address] [facility] EMERGENCY RECORD May substitute. Refills: No Refills . NOTES: No Refills. Mucinex D: TABLET, SUSTAINED RELEASE 12HR : 600 mg-60 mg : ORAL : Quantity: 1-2 Unit: tab(s) Route: ORAL Schedule: every 12 hours Dispense: 24 May substitute. Refills: No Refills . NOTES: ^s=No Refills No Refills. Tessalon Perles: CAPSULE (HARD, SOFT, ETC.) : 100 mg : ORAL : Quantity: 1 Unit: tab(s) Route: ORAL Schedule: 3 times a day Dispense: 30 May substitute. Refills: No Refills . NOTES: ^s=^s=No Refills No Refills No Refills. DISPOSITION PATIENT: Disposition Type: Discharge, Disposition: *Discharge Home. (11:36 BLEW) Patient left the department. (11:47 BDON) Marte: HUYEN=SUREKHA Rendon Bettye BLEW=DO Jackson Brandon &a-1R&a+25V*p+0X*a2204T*c202B*c15G*c2P*p-0X&a-25V&a+1R Name: Melva White : 1995 F21 MedRec: [id number] AcctNum: [id number] Prepared: [facility] May 29, 2016 16:15 by Interface Page 3 of 3 pMD MTDD
--- NOTE | 2016-05-29 11:59 | PICIS ---
[facility] EMERGENCY RECORD TRIAGE (11:23 BDON) TRIAGE NOTES: Sinus drainage, congestion and generalized bodyaches. (11:23 BDON) PATIENT: NAME: Melva White, AGE: 21, GENDER: female, : Sat 1995, TIME OF GREET: Therese May 29, 2016 11:20, PREFERRED LANGUAGE: Estonian, ETHNICITY: Not or , ECODE BILLING MAP: [facility], SSN: [id number], Zip Code: [address], KG WEIGHT: 72.57, PHONE: , , , PERSON ID: [id number], PCP: Jf TONEY JAIME. (11:23 BDON) COMPLAINT: RUNNY NOSE/BODY ACHES. (11:23 BDON) ADMISSION: URGENCY: 4 Non Urgent, ADMISSION SOURCE: Home, TRANSPORT: Walk-in, BED: TRIAGE. (11:23 BDON) ASSESSMENT: Assessment: Generalized bodyaches, no fever, sinus drainage with congestion, Symptoms began 3 days ago. (11:25 BDON) LMP: Last menstrual period: 05/28/2016. (11:25 BDON) TREATMENTS IN PROGRESS: Treatments given Prehospital: none. (11:25 BDON) PROVIDERS: TRIAGE NURSE: Nancy Rendon RN. (11:23 BDON) VITAL SIGNS: BP 111/70, Pulse 95, Resp 18, Temp 98.7, (Oral), Pain 2, O2 Sat 99, Time 05/29/2016 11:23. (11:23 BDON) PREVIOUS VISIT ALLERGIES: No Known Drug Allergies. (11:23 BDON) No Known Drug Allergies. (11:25 BDON) KNOWN ALLERGIES No Known Drug Allergies CURRENT MEDICATIONS (11:23 BDON) None VITAL SIGNS (11:23 BDON) VITAL SIGNS: BP: 111/70, Pulse: 95, Resp: 18, Temp: 98.7 (Oral), Pain: 2, O2 sat: 99, Time: 05/29/2016 11:23. NURSING ASSESSMENT: ENT (11:42 BDON) CONSTITUTIONAL: Patient arrives ambulatory, Gait steady, History obtained from patient, Patient appears, uncomfortable, Patient cooperative, Patient alert, Oriented to person, place and time, Skin warm, Skin dry, Skin normal in color. ENT: Congestion. RESPIRATORY/CHEST: Respiratory assessment findings include respiratory effort easy, Respirations regular, Conversing normally. SAFETY: Cart/Stretcher in lowest position, Hospital ID band on, Patient in view of the nursing station. NURSING PROCEDURE: DISCHARGE NOTE (11:46 BDON) DISCHARGE: Patient discharged to home, ambulating without assistance, Summary of Care printed/ provided, Patient requested and was provided an electronic copy of Discharge Instructions, Transition record given to patient, Discharge instructions given to patient, &a-1R&a+25V*p+0X*c5395R*c202B*c15G*c2P*p-0X&a-25V&a+1R Name: Melva White : 1995 F21 MedRec: [id number] AcctNum: [id number] Prepared: ThuMay 29, 2016 11:57 by Interface Page 1 of 5 pMD [facility] EMERGENCY RECORD Simple or moderate discharge teaching performed, Prescriptions given and instructions on side effects given, Medication reconciliation form given, Above person(s) verbalized understanding of discharge instructions and follow-up care, Patient treated and evaluated by physician. MEDICATION ADMINISTRATION SUMMARY Drug Name: Afrin Sinus, Dose Ordered: 2 spray(s), Route: Nares Both, Status: Given, Time: 11:37 05/29/2016, Detailed record available in Medication Service section. MEDICATION SERVICE (11:37 BLEW) Afrin Sinus: Order: Afrin Sinus (oxymetazoline HCl) - Dose: 2 spray(s) : Nares Both Ordered by: Jerry Jackson DO Entered by: Jerry Jackson DO [facility] May 29, 2016 11:35 Documented as given by: Nancy Rendon RN [facility] May 29, 2016 11:37 Patient, Medication, Dose, Route and Time verified prior to administration. Site: Medication administered bilateral nares, Instructed to blow nose prior to administration, Correct patient, time, route, dose and medication confirmed prior to administration, Patient advised of actions and side-effects prior to administration, Allergies confirmed and medications reviewed prior to administration. HPI FLU-LIKE SYNDROME (11:35 BLEW) CHIEF COMPLAINT: Patient presents for evaluation of body aches, Patient presents for evaluation of fatigue, Patient presents for evaluation of fever, subjective. HISTORIAN: History provided by patient. LOCATION: Symptoms are generalized. SEVERITY: Maximum severity of symptoms moderate, Currently symptoms are moderate. TIME COURSE: Gradual onset of symptoms, are constant. ASSOCIATED WITH: Associated with cough, non-productive, Associated with headache. EXACERBATED BY: Patient's condition exacerbated by nothing. RELIEVED BY: Patient's condition relieved by over the counter medications, antipyretics (transiently). ROS (11:35 BLEW) CONSTITUTIONAL: Negative constitutional review of systems. EYES: Negative eye review of systems. ENT: Negative ears, nose, throat review of systems. CARDIOVASCULAR: Negative cardiovascular review of systems. RESPIRATORY: Negative respiratory review of systems. GI: Negative gastrointestinal review of systems. MUSCULOSKELETAL: Negative musculoskeletal review of systems. SKIN: Negative skin review of systems. &a-1R&a+25V*p+0X*o8783B*c202B*c15G*c2P*p-0X&a-25V&a+1R Name: Melva White : 1995 F21 MedRec: [id number] AcctNum: [id number] Prepared: [facility] May 29, 2016 11:57 by Interface Page 2 of 5 pMD [facility] EMERGENCY RECORD PSYCHIATRIC: Negative psychiatric review of systems. NOTES: All other ROS is negative except as listed in HPI. PAST MEDICAL HISTORY MEDICAL HISTORY: Flu vaccine not up to date, Tetanus immunization up to date, No past medical history. (11:25 BDON) FEMALE SURGICAL HISTORY: DNC, Surgical history of section. (11:25 BDON) PSYCHIATRIC HISTORY: Psychiatric history includes, anxiety. (11:25 BDON) SOCIAL HISTORY: Patient denies alcohol use, Patient denies drug use, Patient has no smoking history. (11:25 BDON) FAMILY HISTORY: No known family hisotry, Family history is not significant, Family history is non-contributory to this case, Family history is non-contributory to this case. No known family hisotry, Family history is not significant, Family history is non-contributory to this case, Family history is non-contributory to this case. (11:25 BDON) NOTES: I have reviewed and agree with the PMH/PSxH/FamHx/SocHx obtained by the nurse. (11:35 BLEW) PHYSICAL EXAM (11:35 BLEW) CONSTITUTIONAL: Vital signs reviewed, Patient afebrile, Pulse normal, Blood pressure normal, Respiratory rate normal, Patient appears non toxic, Patient appears pain free, Patient alert and oriented to person, place and time. HEAD: Head exam included findings of head atraumatic, normocephalic. EYES: Eye exam included findings of eyelids normal to inspection, Pupils equally round and reactive to light, Extraocular muscles intact. ENT: ENT exam normal, Nose exam included findings of, Nasal congestion noted., Pharynx, Mild erythema, Uvula exam normal. NECK: Neck exam included findings of normal range of motion, Trachea midline. RESPIRATORY CHEST: Respiratory exam included findings of no respiratory distress, Breath sounds clear, Chest exam included findings of chest movement symmetrical, Chest expansion equal. CARDIOVASCULAR: Cardiovascular exam included findings of heart rate regular rate and rhythm, Heart sounds normal. NEURO: Neuro exam findings include patient oriented to person, place and time, Speech normal. PSYCHIATRIC: Psychiatric exam included findings of patient oriented to person place and time, Normal affect. EVENTS TRANSFER: Triage to Emergency Triage. (ThuMay 29, 2016 11:23 BDON) &a-1R&a+25V*p+0X*f5504N*c202B*c15G*c2P*p-0X&a-25V&a+1R Name: Melva White : 1995 F21 MedRec: [id number] AcctNum: [id number] Prepared: [facility] May 29, 2016 11:57 by Interface Page 3 of 5 D [facility] EMERGENCY RECORD Emergency Triage to Emergency Room -03. (11:23 BDON) Removed from Emergency Emergency Room -03. (11:47 BDON) DOCTOR NOTES (11:35 BLEW) TEXT: Pt is well hydrated, non-toxic, and tolerating PO's. Pt is suitable for O/P treatment with PCP f/u. PROBLEM LIST No recorded problems DIAGNOSIS (11:36 BLEW) FINAL: PRIMARY: influenza like illness. DISPOSITION PATIENT: Disposition Type: Discharge, Disposition: *Discharge Home. (11:36 BLEW) Patient left the department. (11:47 BDON) INSTRUCTION (11:37 BLEW) DISCHARGE: UPPER RESP INFECTION NO ANTIBIOTIC TREATMENT ADULT. FOLLOWUP: Maria Eugenia TONEY., [facility], [address] [place] [id number], [phone], Follow up with Primary Care Physician in 7 days. SPECIAL: Call your doctor or return with worsening or worrisome symptoms. PRESCRIPTION (11:36 BLEW) Motrin: TABLET : 800 mg : ORAL : Quantity: 1 Unit: tab(s) Route: ORAL Schedule: 3 times a day Dispense: 24 May substitute. Refills: No Refills . NOTES: No Refills. Mucinex D: TABLET, SUSTAINED RELEASE 12HR : 600 mg-60 mg : ORAL : Quantity: 1-2 Unit: tab(s) Route: ORAL Schedule: every 12 hours Dispense: 24 May substitute. Refills: No Refills . NOTES: ^s=No Refills No Refills. Tessalon Perles: CAPSULE (HARD, SOFT, ETC.) : 100 mg : ORAL : Quantity: 1 Unit: tab(s) Route: ORAL Schedule: 3 times a day Dispense: 30 May substitute. Refills: No Refills . NOTES: ^s=^s=No Refills No Refills No Refills. IMAGING (11:47 BDON) *DISCHARGE INSTRUCTIONS RECEIPT: Image captured from scanner. *SUPPLY CHARGE SHEET: Image captured from scanner. ADMIN (11:47 BDON) &a-1R&a+25V*p+0X*p7254E*c202B*c15G*c2P*p-0X&a-25V&a+1R Name: Melva White : 1995 F21 MedRec: [id number] AcctNum: [id number] Prepared: [facility] May 29, 2016 11:57 by Interface Page 4 of 5 pMD [facility] EMERGENCY RECORD DIGITAL SIGNATURE: SUREKHA Rendon Bettye. Marte: BDON=SUREKHA Rendon Bettye BLEW=DO Jackson Brandon &a-1R&a+25V*p+0X*n8139E*c202B*c15G*c2P*p-0X&a-25V&a+1R Name: Christopher Melva Mckay : 1995 F21 MedRec: [id number] AcctNum: [id number] Prepared: Therese May 29, 2016 11:57 by Interface Page 5 of 5 pMD MTDD
--- NOTE | 2016-05-29 12:02 | PICIS ---
[facility] EMERGENCY RECORD TRIAGE (11:23 BDON) TRIAGE NOTES: Sinus drainage, congestion and generalized bodyaches. (11:23 BDON) PATIENT: NAME: Melva White, AGE: 21, GENDER: female, : Sat 1995, TIME OF GREET: Therese May 29, 2016 11:20, PREFERRED LANGUAGE: Mongolian, ETHNICITY: Not or , ECODE BILLING MAP: [facility], SSN: [id number], Zip Code: [address], KG WEIGHT: 72.57, PHONE: , , , PERSON ID: [id number], PCP: Jf TONEY JAIME. (11:23 BDON) COMPLAINT: RUNNY NOSE/BODY ACHES. (11:23 BDON) ADMISSION: URGENCY: 4 Non Urgent, ADMISSION SOURCE: Home, TRANSPORT: Walk-in, BED: TRIAGE. (11:23 BDON) ASSESSMENT: Assessment: Generalized bodyaches, no fever, sinus drainage with congestion, Symptoms began 3 days ago. (11:25 BDON) LMP: Last menstrual period: 05/28/2016. (11:25 BDON) TREATMENTS IN PROGRESS: Treatments given Prehospital: none. (11:25 BDON) PROVIDERS: TRIAGE NURSE: Nancy Rendon RN. (11:23 BDON) VITAL SIGNS: BP 111/70, Pulse 95, Resp 18, Temp 98.7, (Oral), Pain 2, O2 Sat 99, Time 05/29/2016 11:23. (11:23 BDON) PREVIOUS VISIT ALLERGIES: No Known Drug Allergies. (11:23 BDON) No Known Drug Allergies. (11:25 BDON) KNOWN ALLERGIES No Known Drug Allergies CURRENT MEDICATIONS (11:23 BDON) None VITAL SIGNS (11:23 BDON) VITAL SIGNS: BP: 111/70, Pulse: 95, Resp: 18, Temp: 98.7 (Oral), Pain: 2, O2 sat: 99, Time: 05/29/2016 11:23. NURSING ASSESSMENT: ENT (11:42 BDON) CONSTITUTIONAL: Patient arrives ambulatory, Gait steady, History obtained from patient, Patient appears, uncomfortable, Patient cooperative, Patient alert, Oriented to person, place and time, Skin warm, Skin dry, Skin normal in color. ENT: Congestion. RESPIRATORY/CHEST: Respiratory assessment findings include respiratory effort easy, Respirations regular, Conversing normally. SAFETY: Cart/Stretcher in lowest position, Hospital ID band on, Patient in view of the nursing station. NURSING PROCEDURE: DISCHARGE NOTE (11:46 BDON) DISCHARGE: Patient discharged to home, ambulating without assistance, Summary of Care printed/ provided, Patient requested and was provided an electronic copy of Discharge Instructions, Transition record given to patient, Discharge instructions given to patient, &a-1R&a+25V*p+0X*t2741O*c202B*c15G*c2P*p-0X&a-25V&a+1R Name: Melva White : 1995 F21 MedRec: [id number] AcctNum: [id number] Prepared: ThuMay 29, 2016 16:21 by Interface Page 1 of 5 pMD [facility] EMERGENCY RECORD Simple or moderate discharge teaching performed, Prescriptions given and instructions on side effects given, Medication reconciliation form given, Above person(s) verbalized understanding of discharge instructions and follow-up care, Patient treated and evaluated by physician. MEDICATION ADMINISTRATION SUMMARY Drug Name: Afrin Sinus, Dose Ordered: 2 spray(s), Route: Nares Both, Status: Given, Time: 11:37 05/29/2016, Detailed record available in Medication Service section. MEDICATION SERVICE (11:37 BLEW) Afrin Sinus: Order: Afrin Sinus (oxymetazoline HCl) - Dose: 2 spray(s) : Nares Both Ordered by: Jerry Jackson DO Entered by: Jerry Jackson DO [facility] May 29, 2016 11:35 Documented as given by: Nancy Rendon RN [facility] May 29, 2016 11:37 Patient, Medication, Dose, Route and Time verified prior to administration. Site: Medication administered bilateral nares, Instructed to blow nose prior to administration, Correct patient, time, route, dose and medication confirmed prior to administration, Patient advised of actions and side-effects prior to administration, Allergies confirmed and medications reviewed prior to administration. HPI FLU-LIKE SYNDROME (11:35 BLEW) CHIEF COMPLAINT: Patient presents for evaluation of body aches, Patient presents for evaluation of fatigue, Patient presents for evaluation of fever, subjective. HISTORIAN: History provided by patient. LOCATION: Symptoms are generalized. SEVERITY: Maximum severity of symptoms moderate, Currently symptoms are moderate. TIME COURSE: Gradual onset of symptoms, are constant. ASSOCIATED WITH: Associated with cough, non-productive, Associated with headache. EXACERBATED BY: Patient's condition exacerbated by nothing. RELIEVED BY: Patient's condition relieved by over the counter medications, antipyretics (transiently). ROS (11:35 BLEW) CONSTITUTIONAL: Negative constitutional review of systems. EYES: Negative eye review of systems. ENT: Negative ears, nose, throat review of systems. CARDIOVASCULAR: Negative cardiovascular review of systems. RESPIRATORY: Negative respiratory review of systems. GI: Negative gastrointestinal review of systems. MUSCULOSKELETAL: Negative musculoskeletal review of systems. SKIN: Negative skin review of systems. &a-1R&a+25V*p+0X*e6824H*c202B*c15G*c2P*p-0X&a-25V&a+1R Name: Melva White : 1995 F21 MedRec: [id number] AcctNum: [id number] Prepared: Therese May 29, 2016 16:21 by Interface Page 2 of 5 pMD [facility] EMERGENCY RECORD PSYCHIATRIC: Negative psychiatric review of systems. NOTES: All other ROS is negative except as listed in HPI. PAST MEDICAL HISTORY MEDICAL HISTORY: Flu vaccine not up to date, Tetanus immunization up to date, No past medical history. (11:25 BDON) FEMALE SURGICAL HISTORY: DNC, Surgical history of section. (11:25 BDON) PSYCHIATRIC HISTORY: Psychiatric history includes, anxiety. (11:25 BDON) SOCIAL HISTORY: Patient denies alcohol use, Patient denies drug use, Patient has no smoking history. (11:25 BDON) FAMILY HISTORY: No known family hisotry, Family history is not significant, Family history is non-contributory to this case, Family history is non-contributory to this case. No known family hisotry, Family history is not significant, Family history is non-contributory to this case, Family history is non-contributory to this case. (11:25 BDON) NOTES: I have reviewed and agree with the PMH/PSxH/FamHx/SocHx obtained by the nurse. (11:35 BLEW) PHYSICAL EXAM (11:35 BLEW) CONSTITUTIONAL: Vital signs reviewed, Patient afebrile, Pulse normal, Blood pressure normal, Respiratory rate normal, Patient appears non toxic, Patient appears pain free, Patient alert and oriented to person, place and time. HEAD: Head exam included findings of head atraumatic, normocephalic. EYES: Eye exam included findings of eyelids normal to inspection, Pupils equally round and reactive to light, Extraocular muscles intact. ENT: ENT exam normal, Nose exam included findings of, Nasal congestion noted., Pharynx, Mild erythema, Uvula exam normal. NECK: Neck exam included findings of normal range of motion, Trachea midline. RESPIRATORY CHEST: Respiratory exam included findings of no respiratory distress, Breath sounds clear, Chest exam included findings of chest movement symmetrical, Chest expansion equal. CARDIOVASCULAR: Cardiovascular exam included findings of heart rate regular rate and rhythm, Heart sounds normal. NEURO: Neuro exam findings include patient oriented to person, place and time, Speech normal. PSYCHIATRIC: Psychiatric exam included findings of patient oriented to person place and time, Normal affect. EVENTS TRANSFER: Triage to Emergency Triage. (ThuMay 29, 2016 11:23 BDON) &a-1R&a+25V*p+0X*p7068A*c202B*c15G*c2P*p-0X&a-25V&a+1R Name: Melva White : 1995 F21 MedRec: [id number] AcctNum: [id number] Prepared: [facility] May 29, 2016 16:21 by Interface Page 3 of 5 D [facility] EMERGENCY RECORD Emergency Triage to Emergency Room -03. (11:23 BDON) Removed from Emergency Emergency Room -03. (11:47 BDON) DOCTOR NOTES (11:35 BLEW) TEXT: Pt is well hydrated, non-toxic, and tolerating PO's. Pt is suitable for O/P treatment with PCP f/u. PROBLEM LIST No recorded problems DIAGNOSIS (11:36 BLEW) FINAL: PRIMARY: influenza like illness. DISPOSITION PATIENT: Disposition Type: Discharge, Disposition: *Discharge Home. (11:36 BLEW) Patient left the department. (11:47 BDON) INSTRUCTION (11:37 BLEW) DISCHARGE: UPPER RESP INFECTION NO ANTIBIOTIC TREATMENT ADULT. FOLLOWUP: Maria Eugenia TONEY., [facility], [address] [place] [id number], [phone], Follow up with Primary Care Physician in 7 days. SPECIAL: Call your doctor or return with worsening or worrisome symptoms. PRESCRIPTION (11:36 BLEW) Motrin: TABLET : 800 mg : ORAL : Quantity: 1 Unit: tab(s) Route: ORAL Schedule: 3 times a day Dispense: 24 May substitute. Refills: No Refills . NOTES: No Refills. Mucinex D: TABLET, SUSTAINED RELEASE 12HR : 600 mg-60 mg : ORAL : Quantity: 1-2 Unit: tab(s) Route: ORAL Schedule: every 12 hours Dispense: 24 May substitute. Refills: No Refills . NOTES: ^s=No Refills No Refills. Tessalon Perles: CAPSULE (HARD, SOFT, ETC.) : 100 mg : ORAL : Quantity: 1 Unit: tab(s) Route: ORAL Schedule: 3 times a day Dispense: 30 May substitute. Refills: No Refills . NOTES: ^s=^s=No Refills No Refills No Refills. IMAGING (11:47 BDON) *DISCHARGE INSTRUCTIONS RECEIPT: Image captured from scanner. *SUPPLY CHARGE SHEET: Image captured from scanner. ADMIN &a-1R&a+25V*p+0X*l4072H*c202B*c15G*c2P*p-0X&a-25V&a+1R Name: Melva White Woody : 1995 F21 MedRec: [id number] AcctNum: [id number] Prepared: [facility] May 29, 2016 16:21 by Interface Page 4 of 5 pMD [facility] EMERGENCY RECORD DIGITAL SIGNATURE: SUREKHA Rendon Bettye. (11:47 BDON) DO Jackson Brandon. (16:12 BLEW) Marte: BDON=SUREKHA Rendon Bettye BLEW=DO Jackson Brandon &a-1R&a+25V*p+0X*n3548I*c202B*c15G*c2P*p-0X&a-25V&a+1R Name: Melva White : 1995 F21 MedRec: [id number] AcctNum: [id number] Prepared: Therese May 29, 2016 16:21 by Interface Page 5 of 5 pMD MTDD
== END 2016-05-29 11:46 | disposition home or self-care (01) ==
LOC: NAV ERS 11:20
DX: J11.1 Influenza due to unidentified influenza virus with other respiratory manifestations (principal); F41.9 Anxiety disorder, unspecified
CPT/HCPCS: 99283

== ENCOUNTER 2016-06-18 20:42 | Emergency (ER) | payer OTHER ==
[2016-06-18 21:01] LABS: Bilirubin Negative (Negative); Blood, Urine Negative (Negative); Glucose, Urine (Dipstick) Negative (Negative); Ketone, Urine Negative (Negative); Nitrite Negative (Negative); Protein, Urine (Dipstick) Negative (Neg-Trace)
[2016-06-18] MEDS ORDERED: Sodium Chloride 0.9% 100 ML ONE (21:12)
[2016-06-18] MEDS ORDERED: Sodium Chloride 0.9% 1,000 ML ONE (21:12)
[2016-06-18] MEDS ORDERED: Promethazine HCl 25 MG/ML VIAL ONE (21:12)
[2016-06-18 21:24] LABS: #Basophils 0.1 thou/uL (0.0-0.2); #Eosinphils 0.6 thou/uL (0.0-0.7); #Lymphocytes 2.9 thou/uL (1.20-3.40); #Monocytes 0.6 thou/uL (0.11-0.59); #Neutrophils 2.6 thou/uL (1.40-6.50); %Basophils 1.8 % (0.0-1.0); %Eosinophils 8.2 % (0.0-10.0); %Lymphocytes 42.9 % (21.0-51.0); %Monocytes 9.2 % (0.0-10.0); Hematocrit 41.5 % (36.0-47.0); Mean Platelet Volume 6.3 fL (7.4-10.4); Red Blood Cell (RBC) Count 4.98 mill/uL (4.20-5.40); White Blood Cell (WBC) Count 6.8 thou/uL (4.8-10.8)
[2016-06-18 21:39] LABS: ALT (SGPT) 11 U/L (0-55); AST (SGOT) 13 U/L (5-34); Alkaline Phosphatase 112 U/L (40-150); Anion Gap 10 mmol/L (10-20); BUN (Urea Nitrogen) 14 mg/dL (7.0-18.7); Bilirubin, Total 0.3 mg/dL (0.2-1.2); Calc. Creatinine Clearance 0 mL/min (70-130); Carbon Dioxide 24 mmol/L (22-29); Chloride 109 mmol/L (98-107); Estimated GFR-MDRD Greater than 90; Globulin 2.9 g/dL (2.4-3.5); Protein, Total 6.7 g/dL (6.0-8.3)
--- NOTE | 2016-06-18 22:29 | ERRECORD ---
[facility] EMERGENCY RECORD HPI NAUSEA/VOMITING/DIARRHEA (20:57 SHAN) CHIEF COMPLAINT: Patient presents for evaluation of nausea. SEVERITY: Maximum severity of symptoms mild, Currently symptoms are mild. ROS (20:58 SHAN) CONSTITUTIONAL: Negative constitutional review of systems. EYES: Negative eye review of systems. ENT: Historian reports rhinorrhea, reports sore throat. CARDIOVASCULAR: Negative cardiovascular review of systems. RESPIRATORY: Historian reports cough. GI: Negative gastrointestinal review of systems. SKIN: Negative skin review of systems. NEUROLOGIC: Negative neurologic review of systems. ENDOCRINE: Negative endocrine review of systems. NOTES: All systems reviewed, negative except as described above. PAST MEDICAL HISTORY (20:52 NRIC) MEDICAL HISTORY: No past medical history, Flu vaccine up to date, Tetanus immunization up to date, Pneumococcal vaccine not up to date, Flu vaccine not up to date, Tetanus immunization up to date, No past medical history. FEMALE SURGICAL HISTORY: DNC, Surgical history of section. PSYCHIATRIC HISTORY: Psychiatric history includes, anxiety. SOCIAL HISTORY: Patient denies alcohol use, Patient denies drug use, Patient has no smoking history. FAMILY HISTORY: No known family hisotry, Family history is not significant, Family history is non-contributory to this case, Family history is non-contributory to this case. No known family hisotry, Family history is not significant, Family history is non-contributory to this case, Family history is non-contributory to this case. KNOWN ALLERGIES No Known Drug Allergies CURRENT MEDICATIONS (20:51 NRIC) None VITAL SIGNS VITAL SIGNS: BP: 113/58, Pulse: 74, Resp: 18, Temp: 98.5 (Oral), Pain: 7, O2 sat: 99 on Room Air, Time: 06/18/2016 20:51. (20:51 NRIC) BP: 103/57, Pulse: 82, Resp: 18, Pain: 6, O2 sat: 98 on Room Air, Time: 06/18/2016 21:44. (21:44 NRIC) PHYSICAL EXAM (20:58 SHAN) CONSTITUTIONAL: Patient afebrile, Pulse normal, Blood pressure &a-1R&a+25V*p+0X*l7519T*c202B*c15G*c2P*p-0X&a-25V&a+1R Name: Melva White : 1995 F21 MedRec: [id number] AcctN: [id number] Prepared: ThuJun 18, 2016 22:28 by Interface Page 1 of 3 pMD [facility] EMERGENCY RECORD normal, Respiratory rate normal, Normal pulse oximetry, Patient appears non toxic, Patient appears pain free, Patient alert and oriented to person, place and time. HEAD: Head exam included findings of head atraumatic, normocephalic. EYES: Eye exam included findings of eyelids normal to inspection, Pupils equally round and reactive to light, Extraocular muscles intact. ENT: nasal congestion. NECK: Neck exam normal. RESPIRATORY CHEST: Mild ronchi. ABDOMEN FEMALE: Abdominal exam included findings of abdomen nontender, Bowel sounds normal. BACK: Back exam normal. UPPER EXTREMITY: Upper extremity exam included findings of inspection normal, Range of motion normal. NEURO: Neuro exam normal. SKIN: Skin exam normal. MEDICATION ADMINISTRATION SUMMARY Drug Name: Phenergan injection, Dose Ordered: 12.5 mg, Route: IV Push, Status: Given, Time: 21:17 06/18/2016, Drug Name: Normal Saline, Dose Ordered: 1 L, Route: IV Fluid Infusion, Status: Given, Time: 21:08 06/18/2016, Detailed record available in Medication Service section. DOCTOR NOTES (: [facility]) TEXT: Abdomen is soft, exam very normal; affect is an issue, very anxious. PROBLEM LIST No recorded problems DIAGNOSIS (: [facility]) FINAL: PRIMARY: Acute Gastroenteritis - presumed infectious. PRESCRIPTION (: [facility]) Zofran ODT: TABLET,DISINTEGRATING : 4 mg : ORAL : Quantity: 1 Unit: tab(s) Route: ORAL Schedule: every 4 hours prn Dispense: 20 Unit: tab(s) May substitute. Refills: No Refills . NOTES: if needed for nausea No Refills. DISPOSITION PATIENT: Disposition Type: Discharge, Disposition: *Discharge Home. (: [facility]) Patient left the department. (22:24 NRIC) &a-1R&a+25V*p+0X*o3047A*c202B*c15G*c2P*p-0X&a-25V&a+1R Name: Melva White : 1995 F21 MedRec: [id number] AcctNum: [id number] Prepared: ThuJun 18, 2016 22:28 by Interface Page 2 of 3 pMD [facility] EMERGENCY RECORD Marte: RUSH=SUREKHA Deng, Radha SZYMANSKI=MD Carla, Nicanor &a-1R&a+25V*p+0X*z5376U*c202B*c15G*c2P*p-0X&a-25V&a+1R Name: Melva White : 1995 F21 MedRec: [id number] AcctNum: [id number] Prepared: ThuJun 18, 2016 22:28 by Interface Page 3 of 3 pMD MTDD
--- NOTE | 2016-06-18 22:35 | PICIS ---
[facility] EMERGENCY RECORD TRIAGE (ThuJun 18, 2016 20:49 NRIC) TRIAGE NOTES: Pt reports stomach pain starting today, says relative had stomach virus, nausea. (ThuJun 18, 2016 20:49 NRIC) PATIENT: NAME: Melva White, AGE: 21, GENDER: female, : Sat 1995, TIME OF GREET: ThuJun 18, 2016 20:43, PREFERRED LANGUAGE: Swedish, ETHNICITY: Not or , ECODE BILLING MAP: [facility], SSN: [id number], Zip Code: [address], KG WEIGHT: 72.57, PHONE: , , , PERSON ID: [id number], PCP: Jf TONEY JAIME. (ThuJun 18, 2016 20:49 NRIC) COMPLAINT: STOMACH PAIN. (ThuJun 18, 2016 20:49 NRIC) ADMISSION: URGENCY: 3 Urgent, ADMISSION SOURCE: Home, TRANSPORT: Walk-in, BED: TRIAGE. (ThuJun 18, 2016 20:49 NRIC) PAIN: Patient complains of pain described as, on a scale 0-10 patient rates pain as 7. (20:52 NRIC) IMMUNIZATIONS: Flu vaccine up to date, Tetanus immunization up to date, Pneumococcal vaccine not up to date. (20:52 NRIC) SIRS SCORING: Heart Rate 55-109 (0), Temp range 96.8-101.1 (0), respiratory rate 12-24 (0), Mental Status altered: no (0), Infection or Suspected Infection: No. (20:52 NRIC) TRIAGE SCREENING: Patient denies suicidal ideation, Patient denies presence of domestic violence. (20:52 NRIC) LMP: LMP: Unknown. (20:52 NRIC) PROVIDERS: TRIAGE NURSE: Radha Deng RN. (ThuJun 18, 2016 20:49 NRIC) VITAL SIGNS: BP 113/58, Pulse 74, Resp 18, Temp 98.5, (Oral), Pain 7, O2 Sat 99, on Room Air, Time 06/18/2016 20:51. (20:51 NRIC) PREVIOUS VISIT ALLERGIES: No Known Drug Allergies. (ThuJun 18, 2016 20:49 NRIC) No Known Drug Allergies. (20:52 NRIC) KNOWN ALLERGIES No Known Drug Allergies CURRENT MEDICATIONS (20:51 NRIC) None VITAL SIGNS VITAL SIGNS: BP: 113/58, Pulse: 74, Resp: 18, Temp: 98.5 (Oral), Pain: 7, O2 sat: 99 on Room Air, Time: 06/18/2016 20:51. (20:51 NRIC) BP: 103/57, Pulse: 82, Resp: 18, Pain: 6, O2 sat: 98 on Room Air, Time: 06/18/2016 21:44. (21:44 NRIC) NURSING ASSESSMENT: ABDOMEN (20:53 NRIC) CONSTITUTIONAL: Complex assessment performed, Patient arrives ambulatory, Gait steady, History obtained from patient, Patient appears comfortable, Patient cooperative, Patient alert, Oriented to person, place and time, Skin warm, Skin dry, Skin normal in color, Mucous membranes pink, Mucous membranes moist, Patient is &a-1R&a+25V*p+0X*w9097F*c202B*c15G*c2P*p-0X&a-25V&a+1R Name: Melva White : 1995 F21 MedRec: [id number] AcctNum: [id number] Prepared: ThuJun 18, 2016 22:34 by Interface Page [address] [facility] EMERGENCY RECORD well-groomed, Patient complains of abd pain, Pt reports abdominal pain, cramping, starting earlier today with nausea. denies v/d. Pt reports relative has stomach virus. PAIN: on a scale 0-10 patient rates pain as 7. ABDOMEN: Abdomen assessment findings include abdomen symmetrical, Abdomen soft, non-tender, Bowel sound normal, Associated with nausea, no associated vomiting, no associated diarrhea. LMP: Last menstrual period is unknown. GENITOURINARY FEMALE: no associated urinary complaints. SAFETY: Side rails up, Cart/Stretcher in lowest position, Call light within reach, Hospital ID band on. NURSING PROCEDURE: DISCHARGE NOTE (22:23 NRIC) DISCHARGE: Patient discharged to home, ambulating without assistance, driving self, unaccompanied, Summary of Care printed/ provided, Transition record given to patient, Discharge instructions given to patient, Simple or moderate discharge teaching performed, Prescriptions given and instructions on side effects given, Above person(s) verbalized understanding of discharge instructions and follow-up care, Patient treated and evaluated by physician. BELONGINGS: Belongings and valuables with patient upon arrival to the Emergency Department include:, Belongings and valuables with patient at time of discharge include:, Belongings remain with patient, Valuables remain with patient. NURSING PROCEDURE: IV PATIENT IDENITIFIER: Patient actively involved in identification process, Patient's identity verified by patient stating name, Patient's identity verified by patient stating date. (21:09 NRIC) IV SITE 1: IV therapy indicated for hydration, IV established, to the right antecubital, using a 20 gauge catheter, in one attempt, IV site prepped with chloraprep, Saline lock established, Flushed with normal saline (mls): 10, Labs drawn at time of placement, labeled in the presence of the patient and sent to lab. (21:09 NRIC) FOLLOW-UP SITE 1: IV discontinued, due to patient being discharged, catheter intact. (22:24 NRIC) SAFETY: Side rails up, Cart/Stretcher in lowest position, Call light within reach, Hospital ID band on. (21:09 NRIC) NURSING PROCEDURE: NURSE NOTES (21:44 NRIC) NURSES NOTES: Notes: Pt resting in bed in NAD. RR even and unlabored. Awaiting further care plan after fluid infusion. NURSING PROCEDURE: URINE COLLECTION (20:55 NRIC) PATIENT IDENTIFIER: Patient actively involved in identification process, Patient's identity verified by patient stating name, Patient's identity verified by patient stating date. URINE COLLECTION FEMALE: Urine collected by mid-stream clean catch, urine clear in color, and clear, Specimen labeled in the &a-1R&a+25V*p+0X*r3120K*c202B*c15G*c2P*p-0X&a-25V&a+1R Name: Melva White : 1995 F21 MedRec: [id number] AcctNum: [id number] Prepared: ThuJun 18, 2016 22:34 by Interface Page [address] [facility] EMERGENCY RECORD presence of the patient and sent to lab, Specimen obtained for culture labeled in the presence of the patient and sent to lab. SAFETY: Side rails up, Cart/Stretcher in lowest position, Call light within reach, Hospital ID band on. ORDER DETAILS Order Name: CBC with Differential, Status: Active, Time: 20:55 06/18/2016, User: NESSA, - Ordered for: MD Aguirre Stanley, - Entered by: MD Aguirre Stanley - [facility] Jun 18, 2016 20:55, - Quantity: 1, Order Name: Comprehensive Metabolic Panel, Status: Active, Time: 20:55 06/18/2016, User: NESSA, - Ordered for: MD Aguirre Stanley, - Entered by: MD Aguirre Stanley - [facility] Jun 18, 2016 20:55, - Quantity: 1, Order Name: Test, Urine (BHCG), Status: Active, Time: 20:51 06/18/2016, User: RUSH, - Ordered for: MD Aguirre Stanley, - Entered by: SUREKHA Deng Nicole [facility] Jun 18, 2016 20:51, - Quantity: 1, Order Name: SALINE LOCK, Status: Done, Time: 21:08 06/18/2016, User: RUSH, - Ordered for: MD Aguirre Stanley, - Entered by: MD Aguirre Stanley [facility] Jun 18, 2016 20:55, - Quantity: 1, Order Name: Urinalysis w/ Rflx Microscopic, Status: Active, Time: 20:51 06/18/2016, User: RUSH, - Ordered for: MD Aguirre Stanley, - Entered by: SUREKHA Deng Nicole [facility] Jun 18, 2016 20:51, - Quantity: 1. MEDICATION ADMINISTRATION SUMMARY Drug Name: Phenergan injection, Dose Ordered: 12.5 mg, Route: IV Push, Status: Given, Time: 21:17 06/18/2016, Drug Name: Normal Saline, Dose Ordered: 1 L, Route: IV Fluid Infusion, Status: Given, Time: 21:08 06/18/2016, Detailed record available in Medication Service section. MEDICATION SERVICE Normal Saline: Order: Normal Saline (0.9 % sodium chloride) - Dose: 1 L : IV Fluid Infusion Schedule: Bolus Ordered by: Nicanor Aguirre MD Entered by: Nicanor Aguirre MD ThuJun 18, 2016 20:56 , Acknowledged by: Radha Deng RN ThuJun 18, 2016 20:57 Documented as given by: Radha Deng RN ThuJun 18, 2016 21:08 Patient, Medication, Dose, Route and Time verified prior to &a-1R&a+25V*p+0X*u0567U*c202B*c15G*c2P*p-0X&a-25V&a+1R Name: Melva White : 1995 F21 MedRec: [id number] AcctNum: [id number] Prepared: ThuJun 18, 2016 22:34 by Interface Page [address] [facility] EMERGENCY RECORD administration. Amount given: 1 L, IV SITE #1 IV fluids established for hydration, IV SITE #1 into right antecubital, IV SITE #1 1st bag hung, amount 1 Liter hung, via primary tubing, Awake and alert- acceptable, Connections checked prior to administration, Line traced prior to administration, Catheter placement confirmed via flush prior to administration, IV site without signs or symptoms of infiltration during medication administration, No swelling during administration, No drainage during administration, IV flushed after administration, Correct patient, time, route, dose and medication confirmed prior to administration, Patient advised of actions and side-effects prior to administration, Allergies confirmed and medications reviewed prior to administration, Patient in position of comfort, Side rails up, Cart in lowest position, Call light in reach. : Follow Up : _IV SITE #1:_, IV fluid infusion discontinued, on ThuJun 18, 2016 22:08, Total fluid hydration time IV site 1 1 hour, ., Total amount infused: 1000ml, IV Line flushed after administration, Patient in position of comfort, Side rails up, Cart in lowest position. (22:13 MBOS) Phenergan injection: Order: Phenergan injection (promethazine HCl) - Dose: 12.5 mg : IV Push Schedule: Now Ordered by: Nicanor Aguirre MD Entered by: Nicanor Aguirre MD ThuJun 18, 2016 21:05 , Acknowledged by: Radha Deng RN ThuJun 18, 2016 21:11 Documented as given by: Radha Deng RN ThuJun 18, 2016 21:17 Patient, Medication, Dose, Route and Time verified prior to administration. Amount given: 12.5 mg, IV SITE #1 IVPB or drip, initial infusion, IVPB mixed in: 100ml, Fluid: 0.9NS, via primary tubing, Awake and alert- acceptable, Connections checked prior to administration, Line traced prior to administration, Catheter placement confirmed via flush prior to administration, IV site without signs or symptoms of infiltration during medication administration, No swelling during administration, No drainage during administration, IV flushed after administration, Correct patient, time, route, dose and medication confirmed prior to administration, Patient advised of actions and side-effects prior to administration, Allergies confirmed and medications reviewed prior to administration, Patient in position of comfort, Side rails up, Cart in lowest position, Call light in reach. : Follow Up : _IV SITE #1:_, Medication infusion discontinued, on ThuJun 18, 2016 21:45, 30 minutes, ., Total amount infused: 100 ml, IV Line flushed after administration. (21:45 NRIC) HPI NAUSEA/VOMITING/DIARRHEA (20:57 SHAN) CHIEF COMPLAINT: Patient presents for evaluation of nausea. SEVERITY: Maximum severity of symptoms mild, Currently symptoms are mild. ROS (20:58 SHAN) &a-1R&a+25V*p+0X*f4226F*c202B*c15G*c2P*p-0X&a-25V&a+1R Name: Melva White : 1995 F21 MedRec: [id number] AcctNum: [id number] Prepared: ThuJun 18, 2016 22:34 by Interface Page [address] [facility] EMERGENCY RECORD CONSTITUTIONAL: Negative constitutional review of systems. EYES: Negative eye review of systems. ENT: Historian reports rhinorrhea, reports sore throat. CARDIOVASCULAR: Negative cardiovascular review of systems. RESPIRATORY: Historian reports cough. GI: Negative gastrointestinal review of systems. SKIN: Negative skin review of systems. NEUROLOGIC: Negative neurologic review of systems. ENDOCRINE: Negative endocrine review of systems. NOTES: All systems reviewed, negative except as described above. PAST MEDICAL HISTORY (20:52 NRIC) MEDICAL HISTORY: No past medical history, Flu vaccine up to date, Tetanus immunization up to date, Pneumococcal vaccine not up to date, Flu vaccine not up to date, Tetanus immunization up to date, No past medical history. FEMALE SURGICAL HISTORY: DNC, Surgical history of section. PSYCHIATRIC HISTORY: Psychiatric history includes, anxiety. SOCIAL HISTORY: Patient denies alcohol use, Patient denies drug use, Patient has no smoking history. FAMILY HISTORY: No known family hisotry, Family history is not significant, Family history is non-contributory to this case, Family history is non-contributory to this case. No known family hisotry, Family history is not significant, Family history is non-contributory to this case, Family history is non-contributory to this case. PHYSICAL EXAM (20:58 SHAN) CONSTITUTIONAL: Patient afebrile, Pulse normal, Blood pressure normal, Respiratory rate normal, Normal pulse oximetry, Patient appears non toxic, Patient appears pain free, Patient alert and oriented to person, place and time. HEAD: Head exam included findings of head atraumatic, normocephalic. EYES: Eye exam included findings of eyelids normal to inspection, Pupils equally round and reactive to light, Extraocular muscles intact. ENT: nasal congestion. NECK: Neck exam normal. RESPIRATORY CHEST: Mild ronchi. ABDOMEN FEMALE: Abdominal exam included findings of abdomen nontender, Bowel sounds normal. BACK: Back exam normal. UPPER EXTREMITY: Upper extremity exam included findings of inspection normal, Range of motion normal. NEURO: Neuro exam normal. SKIN: Skin exam normal. &a-1R&a+25V*p+0X*m1760L*c202B*c15G*c2P*p-0X&a-25V&a+1R Name: Melva White : 1995 F21 MedRec: [id number] AcctNum: [id number] Prepared: ThuJun 18, 2016 22:34 by Interface Page [address] [facility] EMERGENCY RECORD EVENTS TRANSFER: Triage to Emergency Triage. (ThuJun 18, 2016 20:49 NRIC) Emergency Triage to Emergency Room *TR1. (20:51 NRIC) Emergency Emergency Room *TR1 to -05. (21:03 MBOS) Removed from Emergency Emergency Room -05. (22:24 NRIC) DOCTOR NOTES (21:00 SHAN) TEXT: Abdomen is soft, exam very normal; affect is an issue, very anxious. PROBLEM LIST No recorded problems DIAGNOSIS (:) FINAL: PRIMARY: Acute Gastroenteritis - presumed infectious. DISPOSITION PATIENT: Disposition Type: Discharge, Disposition: *Discharge Home. (:) Patient left the department. (22:24 NRIC) INSTRUCTION (:) DISCHARGE: GASTROENTERITIS, VIRAL (4Y-ADULT). FOLLOWUP: Jf TONEY, [facility], [address] [place] [id number], [phone]. SPECIAL: 1. nausea medication if needed 2. rest, take in extra fluids 3. return if condition worsens 4. followup with regular provider in about a week. PRESCRIPTION (:) Zofran ODT: TABLET,DISINTEGRATING : 4 mg : ORAL : Quantity: 1 Unit: tab(s) Route: ORAL Schedule: every 4 hours prn Dispense: 20 Unit: tab(s) May substitute. Refills: No Refills . NOTES: if needed for nausea No Refills. IMAGING (22:25 MBOS) *DISCHARGE INSTRUCTIONS RECEIPT: Image captured from scanner. *SUPPLY CHARGE SHEET: Image captured from scanner. ADMIN (: [facility]) DIGITAL SIGNATURE: MD Aguirre Stanley. RESULTS LABORATORY: Urinalysis w/ Rflx Microscopic Collection DT: Thu &a-1R&a+25V*p+0X*u0384A*c202B*c15G*c2P*p-0X&a-25V&a+1R Name: Melva White : 1995 F21 MedRec: [id number] AcctNum: [id number] Prepared: ThuJun 18, 2016 22:34 by Interface Page [address] [facility] EMERGENCY RECORD 2016 21:00, Color Yellow , Range (Yellow), Clarity Clear , Range (Clear), Specific Ponder, Urine 1.025 , Range (1.005-1.030), pH, Urine 7.0 , Range (5.0-9.0), Leukocyte Negative , Range (Negative), Nitrite Negative , Range (Negative), Protein, Urine (Dipstick) Negative mg/dL, Range (Neg-Trace), Glucose, Urine (Dipstick) Negative mg/dL, Range (Negative), Ketone, Urine Negative mg/dL, Range (Negative), Urobilinogen 1.0 mg/dL, Range (0.2-1.0), Bilirubin Negative , Range (Negative), Blood, Urine Negative , Range (Negative). (: [facility]) Test, Urine (BHCG) Collection DT: ThuJun 18, 2016 21:00, Test - Urine (BHCG) NEGATIVE , Range (NEGATIVE), Method of sensitivity- Indeterminant: results should be repeated, after 48 hours. Positive: results may be detected as early as 4-5 days before a first missed menses. Elimination of BHCG-, Elimination following first trimester D&C: 29-44 Days , Elimination following term : 8-24 Days , Specific Ponder 1.025 , Range (1.002-1.036), A dilute urine specimen may, not contain payable representative levels of hCG. If is still, suspected, a first morning urine specimen OR a random blood specimen should, be obtained from the patient 48-72 hours later and re-tested. , . (: [facility]) CBC with Differential Collection DT: ThuJun 18, 2016 21:21, White Blood Cell (WBC) Count 6.8 thou/uL, Range (4.8-10.8), Red Blood Cell (RBC) Count 4.98 mill/uL, Range (4.20-5.40), Hemoglobin 13.3 g/dL, Range (12.0-16.0), Hematocrit 41.5 %, Range (36.0-47.0), Mean Corpuscular Volume 83.2 fl, Range (81.0-99.0), *Mean Corpuscular Hemoglobin 26.6 - L pg, Range (27.0-31.0), Mean Corpuscular HGB CONC 32.0 g/dL, Range (32.0-36.0), RBC Distribution Width 12.0 %, Range (11.5-14.5), Platelet Count 311 thou/uL, Range (130-400), *Mean Platelet Volume 6.3 - L fL, Range (7.4-10.4), *%Neutrophils 38.1 - L %, Range (42.0-75.0), %Lymphocytes 42.9 %, Range (21.0-51.0), %Monocytes 9.2 %, Range (0.0-10.0), %Eosinophils 8.2 %, Range (0.0-10.0), *%Basophils 1.8 - H %, Range (0.0-1.0), &a-1R&a+25V*p+0X*d1833B*c202B*c15G*c2P*p-0X&a-25V&a+1R Name: Melva White : 1995 F21 MedRec: [id number] AcctNum: [id number] Prepared: ThuJun 18, 2016 22:34 by Interface Page [address] [facility] EMERGENCY RECORD #Neutrophils 2.6 thou/uL, Range (1.40-6.50), #Lymphocytes 2.9 thou/uL, Range (1.20-3.40), *#Monocytes 0.6 - H thou/uL, Range (0.11-0.59), #Eosinphils 0.6 thou/uL, Range (0.0-0.7), #Basophils 0.1 thou/uL, Range (0.0-0.2). (21:35 SHAN) Comprehensive Metabolic Panel Collection DT: ThuJun 18, 2016 21:21, Sodium 139 mmol/L, Range (136-145), Potassium 3.7 mmol/L, Range (3.5-5.1), *Chloride 109 - H mmol/L, Range (98-107), Carbon Dioxide 24 mmol/L, Range (22-29), Anion Gap 10 mmol/L, Range (10-20), BUN (Urea Nitrogen) 14 mg/dL, Range (7.0-18.7), Creatinine 0.81 mg/dL, Range (0.6-1.1), Estimated GFR-MDRD Greater than 90 , Reference Range for Estimated GFR: Greater than 90, mL/min/1.73 m2 NOTE: The MDRD equation has not been validated for use, with the elderly (over 70 years of age), women, patients with, serious comorbid condition or persons with extremes of body size, muscle, mass, or nutritional status. , Glucose 96 mg/dL, Range (70-105), Calcium 9.0 mg/dL, Range (7.8-10.44), Bilirubin, Total 0.3 mg/dL, Range (0.2-1.2), Protein, Total 6.7 g/dL, Range (6.0-8.3), NOTE: Plasma values are generally 0.3 to 0.5 g/dL higher than serum values, due to the presence of fibrinogen. , Albumin 3.8 g/dL, Range (3.5-5.0), Globulin 2.9 g/dL, Range (2.4-3.5), Alb/Glob Ratio 1.3 g/dL, Range (1.2-2.2), Alkaline Phosphatase 112 U/L, Range (40-150), AST (SGOT) 13 U/L, Range (5-34), ALT (SGPT) 11 U/L, Range (0-55). (21:55 NESSA) Marte: JOHN=SUREKHA Cm Marie NRIC=SUREKHA Deng, Radha SZYMANSKI=MD Carla, Nicanor &a-1R&a+25V*p+0X*m5289W*c202B*c15G*c2P*p-0X&a-25V&a+1R Name: ChristopherMelva thomas : 1995 F21 MedRec: [id number] AcctNum: [id number] Prepared: ThuJun 18, 2016 22:34 by Interface Page 8 of 8 pMD MTDD
== END 2016-06-18 22:23 | disposition home or self-care (01) ==
LOC: NAV ERS 20:42
DX: K52.9 Noninfective gastroenteritis and colitis, unspecified (principal); F41.9 Anxiety disorder, unspecified
CPT/HCPCS: 80053; 81003; 81025; 85025; 96365; J2550; J7050

== ENCOUNTER 2016-08-31 21:30 | Emergency (ER) | payer OTHER ==
[2016-08-31] MEDS ORDERED: predniSONE 20 MG TAB ONE (22:18)
== END 2016-08-31 22:26 | disposition home or self-care (01) ==
LOC: NAV ERS 21:30
DX: J06.9 Acute upper respiratory infection, unspecified (principal); F41.9 Anxiety disorder, unspecified
CPT/HCPCS: 99283; J7506

== ENCOUNTER 2016-11-08 19:54 | Emergency (ER) | payer OTHER ==
[2016-11-08 20:11] LABS: Bilirubin Negative (Negative); Blood, Urine Negative (Negative); Glucose, Urine (Dipstick) Negative (Negative); Leukocyte Negative (Negative); Nitrite Negative (Negative); Protein, Urine (Dipstick) Negative (Neg-Trace); pH, Urine 7.5 (5.0-9.0)
[2016-11-08 20:15] LABS: Pregnancy Test - Urine (BHCG) Negative (NEGATIVE); Pregu Control Background? CLEAR/WHITE (CLR/WHITE); Pregu Control Bar Appear? YES (CONTROL BAR); Specific Gravity 1.023 (1.002-1.036)
[2016-11-08] MEDS ORDERED: Ketorolac Tromethamine 60 MG/2 ML VIAL ONE (20:15)
[2016-11-08 20:16] LABS: Clarity SL HAZY (Clear)
[2016-11-08 20:41] LABS: #Basophils 0.2 thou/uL (0.0-0.2); #Eosinphils 0.4 thou/uL (0.0-0.7); #Lymphocytes 2.5 thou/uL (1.20-3.40); #Monocytes 0.4 thou/uL (0.11-0.59); #Neutrophils 3.1 thou/uL (1.40-6.50); %Basophils 2.4 % (0.0-1.0); %Eosinophils 6.7 % (0.0-10.0); %Lymphocytes 37.9 % (21.0-51.0); %Monocytes 6.4 % (0.0-10.0); %Neutrophils 46.5 % (42.0-75.0); Hemoglobin 13.8 g/dL (12.0-16.0); Mean Corpuscular HGB CONC 31.7 g/dL (32.0-36.0); Mean Corpuscular Hemoglobin 25.9 pg (27.0-31.0); Mean Corpuscular Volume 81.6 fl (81.0-99.0); Mean Platelet Volume 6.9 fL (7.4-10.4); Platelet Count 279 thou/uL (130-400); RBC Distribution Width 11.3 % (11.5-14.5); Red Blood Cell (RBC) Count 5.35 mill/uL (4.20-5.40); White Blood Cell (WBC) Count 6.6 thou/uL (4.8-10.8)
[2016-11-08 20:51] LABS: ALT (SGPT) 12 U/L (8-55); AST (SGOT) 13 U/L (5-34); Albumin 4.1 g/dL (3.5-5.0); Alkaline Phosphatase 106 U/L (40-150); Anion Gap 13 mmol/L (10-20); BUN (Urea Nitrogen) 11 mg/dL (7.0-18.7); Bilirubin, Total 0.3 mg/dL (0.2-1.2); Calc. Creatinine Clearance 0 mL/min (70-130); Calcium 9.5 mg/dL (7.8-10.44); Carbon Dioxide 23 mmol/L (22-29); Chloride 107 mmol/L (98-107); Estimated GFR-MDRD Greater than 90; Globulin 3.1 g/dL (2.4-3.5); Glucose 88 mg/dL (70-105); Lipase 30 U/L (8-78); Potassium 3.8 mmol/L (3.5-5.1); Protein, Total 7.2 g/dL (6.0-8.3); Sodium 139 mmol/L (136-145)
== END 2016-11-08 21:53 | disposition home or self-care (01) ==
LOC: NAV ERS 19:54
DX: K59.00 Constipation, unspecified (principal); F41.9 Anxiety disorder, unspecified
CPT/HCPCS: 80053; 81003; 81025; 83690; 85025; 96372; J1885

== ENCOUNTER 2016-12-13 15:00 | Emergency (ER) | payer OTHER ==
[2016-12-13] MEDS ORDERED: Ibuprofen 800 MG TAB ONE (15:36)
== END 2016-12-13 15:41 | disposition home or self-care (01) ==
LOC: NAV ERS 15:00
DX: M79.632 Pain in left forearm (principal); F41.9 Anxiety disorder, unspecified; X50.0XXA Overexertion from strenuous movement or load, initial encounter
CPT/HCPCS: 99283

== ENCOUNTER 2017-02-09 20:38 | Emergency (ER) | payer OTHER ==
[2017-02-09 21:49] LABS: Amphetamine Not Detected (NotDetected); Barbiturates Screen Not Detected (NotDetected); Benzodiazepine Screen Not Detected (NotDetected); Cocaine Metabolite Screen Not Detected (NotDetected); Medtox Control Line Valid? VALID (VALID); Methadone Not Detected (NotDetected); Methamphetamine Not Detected (NotDetected); Opiate Screen Not Detected (NotDetected); Oxycodone Screen Not Detected (NotDetected); Phencyclidine (PCP) Not Detected (NotDetected); THC/Cannabinoid Screen Not Detected (NotDetected); Tricyclic Screen Not Detected (NotDetected)
[2017-02-09 21:51] LABS: #Basophils 0.2 thou/uL (0.0-0.2); #Eosinphils 0.8 thou/uL (0.0-0.7); #Lymphocytes 3.1 thou/uL (1.20-3.40); #Monocytes 0.5 thou/uL (0.11-0.59); %Basophils 2.1 % (0.0-1.0); %Eosinophils 10.2 % (0.0-10.0); %Lymphocytes 41.1 % (21.0-51.0); %Monocytes 6.8 % (0.0-10.0); %Neutrophils 39.9 % (42.0-75.0); Hemoglobin 13.4 g/dL (12.0-16.0); Mean Corpuscular HGB CONC 31.9 g/dL (32.0-36.0); Mean Corpuscular Hemoglobin 26.1 pg (27.0-31.0); Mean Corpuscular Volume 81.7 fl (81.0-99.0); Mean Platelet Volume 6.6 fL (7.4-10.4); Platelet Count 291 thou/uL (130-400); RBC Distribution Width 11.9 % (11.5-14.5); Red Blood Cell (RBC) Count 5.13 mill/uL (4.20-5.40); White Blood Cell (WBC) Count 7.6 thou/uL (4.8-10.8)
[2017-02-09 21:52] LABS: ALT (SGPT) 13 U/L (8-55); AST (SGOT) 14 U/L (5-34); Albumin 3.8 g/dL (3.5-5.0); Alkaline Phosphatase 113 U/L (40-150); Anion Gap 15 mmol/L (10-20); BUN (Urea Nitrogen) 10 mg/dL (7.0-18.7); Bilirubin, Total 0.3 mg/dL (0.2-1.2); Calc. Creatinine Clearance 0 mL/min (70-130); Calcium 9.1 mg/dL (7.8-10.44); Carbon Dioxide 20 mmol/L (22-29); Chloride 109 mmol/L (98-107); Estimated GFR-MDRD Greater than 90; Globulin 2.6 g/dL (2.4-3.5); Glucose 91 mg/dL (70-105); Magnesium 2.3 mg/dL (1.6-2.6); Potassium 4.2 mmol/L (3.5-5.1); Protein, Total 6.4 g/dL (6.0-8.3); Sodium 140 mmol/L (136-145)
== END 2017-02-09 22:30 | disposition home or self-care (01) ==
LOC: NAV ERS 20:38
DX: B34.9 Viral infection, unspecified (principal); F41.9 Anxiety disorder, unspecified
CPT/HCPCS: 80053; 80306; 83735; 84443; 85025; 87081; 87430; 93005; 96360

== ENCOUNTER 2017-04-05 21:06 | Emergency (ER) | payer OTHER ==
[2017-04-05 21:27] LABS: Bilirubin Negative (Negative); Blood, Urine Trace (Negative); Clarity Clear (Clear); Glucose, Urine (Dipstick) Negative (Negative); Leukocyte Negative (Negative); Nitrite Negative (Negative); Protein, Urine (Dipstick) Negative (Neg-Trace); pH, Urine 5.5 (5.0-9.0)
[2017-04-05 21:28] LABS: Specific Gravity, Urine 1.024 (1.002-1.036)
[2017-04-05 21:29] LABS: Pregnancy Test - Urine (BHCG) Negative (Negative); Pregu Control Background? CLEAR/WHITE (CLR/WHITE); Pregu Control Bar Appear? YES (CONTROL BAR); Specific Gravity 1.024 (1.002-1.036)
[2017-04-05 21:31] LABS: Bacteria/HPF Rare-Few HPF (None Seen); RBC/HPF 0-3 HPF (0-3); Squamous Epithelial 0-3 HPF (0-3); WBC/HPF 0-3 HPF (0-3)
[2017-04-05] MEDS ORDERED: Ibuprofen 800 MG TAB ONE (21:31)
== END 2017-04-05 21:36 | disposition home or self-care (01) ==
LOC: NAV ERS 21:06
DX: M54.6 Pain in thoracic spine (principal); F41.9 Anxiety disorder, unspecified
CPT/HCPCS: 81003; 81015; 81025; 99283

== ENCOUNTER 2017-05-25 22:44 | Emergency (ER) | payer OTHER ==
[2017-05-25] MEDS ORDERED: Ondansetron ODT 4 MG TAB ONE (23:01)
[2017-05-25 23:09] LABS: Bilirubin Negative (Negative); Blood, Urine Negative (Negative); Clarity Clear (Clear); Glucose, Urine (Dipstick) Negative (Negative); Leukocyte Negative (Negative); Nitrite Negative (Negative); Protein, Urine (Dipstick) Negative (Neg-Trace); Specific Gravity, Urine 1.025 (1.005-1.030)
[2017-05-25 23:12] LABS: Pregnancy Test - Urine (BHCG) Negative (Negative); Pregu Control Background? CLEAR/WHITE (CLR/WHITE); Pregu Control Bar Appear? YES (CONTROL BAR); Specific Gravity 1.025 (1.002-1.036)
[2017-05-25 23:30] LABS: Anion Gap 12 mmol/L (10-20); BUN (Urea Nitrogen) 8 mg/dL (7.0-18.7); Calc. Creatinine Clearance 0 mL/min (70-130); Calcium 8.8 mg/dL (7.8-10.44); Carbon Dioxide 23 mmol/L (22-29); Chloride 106 mmol/L (98-107); Estimated GFR-MDRD Greater than 90; Glucose 88 mg/dL (70-105); Potassium 3.4 mmol/L (3.5-5.1); Sodium 138 mmol/L (136-145)
== END 2017-05-25 23:33 | disposition home or self-care (01) ==
LOC: NAV ERS 22:44
DX: E86.0 Dehydration (principal); R11.2 Nausea with vomiting, unspecified; R19.7 Diarrhea, unspecified; F41.9 Anxiety disorder, unspecified
CPT/HCPCS: 80048; 81003; 81025; 99284; Q0162

== ENCOUNTER 2017-06-19 20:07 | Emergency (ER) | payer OTHER, SELFPAY ==
[2017-06-19 20:38] LABS: Bilirubin Negative (Negative); Blood, Urine Negative (Negative); Glucose, Urine (Dipstick) Negative (Negative); Leukocyte Trace (Negative); Nitrite Negative (Negative); Protein, Urine (Dipstick) Trace mg/dL (Neg-Trace); Urobilinogen 0.2 mg/dL (0.2-1.0)
[2017-06-19 20:51] LABS: Bacteria/HPF Rare-Few HPF (None Seen); Clarity SL HAZY (Clear); Squamous Epithelial 0-3 HPF (0-3); WBC/HPF 0-3 HPF (0-3)
[2017-06-19 20:52] LABS: Specific Gravity, Urine 1.023 (1.002-1.036)
[2017-06-19] MEDS ORDERED: Ondansetron ODT 4 MG TAB ONE (20:54)
== END 2017-06-19 21:00 | disposition home or self-care (01) ==
LOC: NAV ERS 20:07
DX: J11.1 Influenza due to unidentified influenza virus with other respiratory manifestations (principal); F41.9 Anxiety disorder, unspecified
CPT/HCPCS: 81003; 81015; 87804; 99283; Q0162

== ENCOUNTER 2017-10-10 14:24 | Emergency (ER) | payer OTHER | END 2017-10-10 16:09 | disposition home or self-care (01) | LOC: NAV ERS 14:24 | DX: J34.0 Abscess, furuncle and carbuncle of nose (principal); F41.9 Anxiety disorder, unspecified | CPT/HCPCS: 99283 ==

== ENCOUNTER 2017-10-15 13:22 | Emergency (ER) | payer OTHER, SELFPAY | END 2017-10-15 13:53 | disposition home or self-care (01) | LOC: NAV ERS 13:22 | DX: J06.9 Acute upper respiratory infection, unspecified (principal); F41.9 Anxiety disorder, unspecified | CPT/HCPCS: 99283 ==

== ENCOUNTER 2017-11-11 00:39 | Emergency (ER) | payer OTHER ==
[2017-11-11] MEDS ORDERED: Naproxen 500 MG TAB ONE (01:09)
== END 2017-11-11 01:16 | disposition home or self-care (01) ==
LOC: NAV ERS 00:39
DX: T83.84XA Pain due to genitourinary prosthetic devices, implants and grafts, initial encounter (principal); M79.601 Pain in right arm; F41.9 Anxiety disorder, unspecified
CPT/HCPCS: 99283

== ENCOUNTER 2018-01-14 22:36 | Emergency (ER) | payer OTHER, SELFPAY ==
[2018-01-14] MEDS ORDERED: Ibuprofen 200 MG TAB ONE (23:12)
== END 2018-01-14 23:15 | disposition home or self-care (01) ==
LOC: NAV ERS 22:36
DX: J06.9 Acute upper respiratory infection, unspecified (principal); F41.9 Anxiety disorder, unspecified
CPT/HCPCS: 99283

== ENCOUNTER 2018-02-18 06:48 | Emergency (ER) | payer OTHER ==
[2018-02-18] MEDS ORDERED: Sodium Chloride 0.9% 1,000 ML ONE (07:09)
[2018-02-18] MEDS ORDERED: Ondansetron HCl/PF 4 MG/2 ML Vial ONE (07:11)
[2018-02-18 07:22] LABS: #Basophils 0.1 thou/uL (0.0-0.2); #Eosinphils 0.1 thou/uL (0.0-0.7); #Lymphocytes 0.5 thou/uL (1.20-3.40); #Monocytes 0.4 thou/uL (0.11-0.59); #Neutrophils 8.2 thou/uL (1.40-6.50); %Eosinophils 0.6 % (0.0-10.0); %Monocytes 4.7 % (0.0-10.0); %Neutrophils 88.8 % (42.0-75.0); Hemoglobin 14.9 g/dL (12.0-16.0); Mean Corpuscular HGB CONC 31.9 g/dL (32.0-36.0); Mean Corpuscular Hemoglobin 26.2 pg (27.0-31.0); Mean Corpuscular Volume 82.1 fL (78.0-98.0); Mean Platelet Volume 7.4 fL (7.4-10.4); Platelet Count 258 thou/uL (130-400); RBC Distribution Width 11.3 % (11.5-14.5); Red Blood Cell (RBC) Count 5.69 mill/uL (4.20-5.40); White Blood Cell (WBC) Count 9.2 thou/uL (4.8-10.8)
[2018-02-18] MEDS ORDERED: Pantoprazole 40 MG VIAL ONE (07:35)
[2018-02-18 07:37] LABS: ALT (SGPT) 19 U/L (8-55); AST (SGOT) 21 U/L (5-34); Albumin 4.4 g/dL (3.5-5.0); Alkaline Phosphatase 70 U/L (40-150); Anion Gap 15 mmol/L (10-20); BUN (Urea Nitrogen) 15 mg/dL (7.0-18.7); Bilirubin, Total 0.8 mg/dL (0.2-1.2); Calc. Creatinine Clearance 0 mL/min (70-130); Calcium 9.7 mg/dL (7.8-10.44); Carbon Dioxide 20 mmol/L (22-29); Chloride 107 mmol/L (98-107); Estimated GFR-MDRD Greater than 90; Globulin 3.1 g/dL (2.4-3.5); Glucose 114 mg/dL (70-105); Lipase 13 U/L (8-78); Potassium 4.2 mmol/L (3.5-5.1); Protein, Total 7.5 g/dL (6.0-8.3); Sodium 138 mmol/L (136-145)
[2018-02-18 07:50] LABS: BHCG - Serum Negative (NEGATIVE); Pregs Control Bar Appear? YES (CONTROL BAR)
[2018-02-18] MEDS ORDERED: Ketorolac Tromethamine 30 MG/ML VIAL ONE (07:55)
--- NOTE | 2018-02-18 08:40 | RAD ---
2 VIEWS ABDOMEN: Date: 02/18/18 HISTORY: Abdominal pain, anxiety. COMPARISON: 08/11/15. FINDINGS: Lung bases are clear. Bowel gas pattern is nonspecific. No suspicious calcifications are seen. There are several lucent centered calcifications overlying the pelvis bilaterally, likely related to multip le phleboliths, which have mildly increased in number from prior study. Osseous structures are intact . IMPRESSION: Nonspecific bowel gas pattern. POS: [facility]
[2018-02-18 09:01] LABS: Bilirubin Negative (Negative); Blood, Urine Negative (Negative); Clarity Clear (Clear); Glucose, Urine (Dipstick) Negative (Negative); Leukocyte Negative (Negative); Nitrite Negative (Negative); Protein, Urine (Dipstick) Negative (Neg-Trace); Specific Gravity, Urine 1.015 (1.005-1.030)
== END 2018-02-18 09:37 | disposition home or self-care (01) ==
LOC: NAV ERS 06:48
DX: A08.4 Viral intestinal infection, unspecified (principal); F41.9 Anxiety disorder, unspecified
CPT/HCPCS: 74019; 80053; 81003; 83605; 83690; 84703; 85025; 87040; 96361; 96374; 96375; 96376; C9113; J1885; J2405; J7050

== ENCOUNTER 2018-06-13 13:55 | Emergency (ER) | payer MEDICAID, SELFPAY ==
[2018-06-13] MEDS ORDERED: predniSONE 20 MG TAB ONE (14:41)
== END 2018-06-13 14:45 | disposition home or self-care (01) ==
LOC: NAV ERS 13:55
DX: L30.9 Dermatitis, unspecified (principal); F41.9 Anxiety disorder, unspecified
CPT/HCPCS: 99282; J7506

== ENCOUNTER 2018-07-12 10:50 | Emergency (ER) | payer MEDICAID, SELFPAY | END 2018-07-12 12:25 | disposition home or self-care (01) | LOC: NAV ERS 10:50 | DX: R21 Rash and other nonspecific skin eruption (principal) | CPT/HCPCS: 99281 ==

== ENCOUNTER 2018-10-27 22:35 | Emergency (ER) | payer SELFPAY | END 2018-10-27 22:55 | disposition home or self-care (01) | LOC: NAV ERS 22:35 | DX: H00.013 Hordeolum externum right eye, unspecified eyelid (principal); F41.9 Anxiety disorder, unspecified | CPT/HCPCS: 99281 ==

== ENCOUNTER 2018-12-11 14:51 | Emergency (ER) | payer SELFPAY ==
[2018-12-11] MEDS ORDERED: Ondansetron PF 4 MG/2 ML Vial ONE (15:15)
[2018-12-11] MEDS ORDERED: Morphine 4 MG/ML VIAL ONE (15:15)
[2018-12-11] MEDS ORDERED: Sodium Chloride 0.9% 1,000 ML ONE (15:15)
[2018-12-11 15:18] LABS: Bilirubin Negative (Negative); Blood, Urine Negative (Negative); Clarity Clear (Clear); Glucose, Urine (Dipstick) Negative (Negative); Leukocyte Trace (Negative); Nitrite Negative (Negative); Protein, Urine (Dipstick) Trace mg/dL (Neg-Trace)
[2018-12-11 15:22] LABS: Pregnancy Test - Urine (BHCG) Negative (Negative); Pregu Control Background? CLEAR/WHITE (CLR/WHITE); Pregu Control Bar Appear? YES (CONTROL BAR); Specific Gravity 1.015 (1.002-1.036)
[2018-12-11 15:26] LABS: #Basophils 0.1 thou/uL (0.0-0.2); #Eosinphils 0.2 thou/uL (0.0-0.7); #Lymphocytes 1.7 thou/uL (1.20-3.40); #Monocytes 0.4 thou/uL (0.11-0.59); #Neutrophils 2.2 thou/uL (1.40-6.50); %Basophils 2.1 % (0.0-1.0); %Eosinophils 3.5 % (0.0-10.0); %Lymphocytes 38.6 % (21.0-51.0); %Monocytes 8.1 % (0.0-10.0); %Neutrophils 47.8 % (42.0-75.0); Mean Corpuscular HGB CONC 30.9 g/dL (32.0-36.0); Mean Corpuscular Hemoglobin 25.1 pg (27.0-31.0); Mean Corpuscular Volume 81.1 fL (78.0-98.0); Mean Platelet Volume 6.7 fL (7.4-10.4); Platelet Count 303 thou/uL (130-400); RBC Distribution Width 11.5 % (11.5-14.5); Red Blood Cell (RBC) Count 5.57 mill/uL (4.20-5.40); White Blood Cell (WBC) Count 4.5 thou/uL (4.8-10.8)
[2018-12-11 15:40] LABS: ALT (SGPT) 13 U/L (8-55); AST (SGOT) 16 U/L (5-34); Albumin 4.1 g/dL (3.5-5.0); Alkaline Phosphatase 67 U/L (40-150); Anion Gap 13 mmol/L (10-20); BUN (Urea Nitrogen) 9 mg/dL (7.0-18.7); Bilirubin, Total 0.4 mg/dL (0.2-1.2); Calc. Creatinine Clearance 0 mL/min (70-130); Calcium 9.6 mg/dL (7.8-10.44); Carbon Dioxide 24 mmol/L (22-29); Chloride 105 mmol/L (98-107); Estimated GFR-MDRD Greater than 90; Globulin 3.1 g/dL (2.4-3.5); Glucose 95 mg/dL (70-105); Lipase 17 U/L (8-78); Potassium 3.9 mmol/L (3.5-5.1); Protein, Total 7.2 g/dL (6.0-8.3); Sodium 138 mmol/L (136-145)
[2018-12-11 15:55] LABS: Bacteria/HPF Rare-Few HPF (None Seen); RBC/HPF 0-3 HPF (0-3); Squamous Epithelial 0-3 HPF (0-3)
== END 2018-12-11 16:42 | disposition home or self-care (01) ==
LOC: NAV ERS 14:51
DX: R10.13 Epigastric pain (principal); R42 Dizziness and giddiness; F41.9 Anxiety disorder, unspecified
CPT/HCPCS: 80053; 81003; 81015; 81025; 83690; 85025; 87077; 87086; 93005; 96361; 96374; 96375; J2270; J2405; J7050

== ENCOUNTER 2019-03-21 21:44 | Emergency (ER) | payer SELFPAY | END 2019-03-21 23:04 | disposition home or self-care (01) | LOC: NAV ERS 21:44 | DX: J06.9 Acute upper respiratory infection, unspecified (principal); L03.311 Cellulitis of abdominal wall; F41.9 Anxiety disorder, unspecified | CPT/HCPCS: 99283 ==

== ENCOUNTER 2019-04-23 17:02 | Emergency (ER) | payer SELFPAY | END 2019-04-23 17:34 | disposition home or self-care (01) | LOC: NAV ERS 17:02 | DX: M79.644 Pain in right finger(s) (principal) | CPT/HCPCS: 99281 ==

== ENCOUNTER 2019-04-25 11:50 | Emergency (ER) | payer SELFPAY ==
[2019-04-25] MEDS ORDERED: Acetaminophen 500 MG TAB ONE (12:00)
[2019-04-25] MEDS ORDERED: Ibuprofen 800 MG TAB ONE (12:00)
== END 2019-04-25 13:22 | disposition home or self-care (01) ==
LOC: NAV ERS 11:50
DX: J11.1 Influenza due to unidentified influenza virus with other respiratory manifestations (principal)
CPT/HCPCS: 87804; 99283

== ENCOUNTER 2019-06-30 15:53 | Emergency (ER) | payer SELFPAY ==
[2019-06-30] MEDS ORDERED: Ondansetron ODT 4 MG TAB ONE (16:24)
[2019-06-30 16:53] LABS: Bilirubin Negative (Negative); Blood, Urine Negative (Negative); Glucose, Urine (Dipstick) Negative (Negative); Leukocyte Negative (Negative); Nitrite Negative (Negative); Protein, Urine (Dipstick) Negative (Neg-Trace); Urobilinogen 0.2 mg/dL (Less than 2)
[2019-06-30 16:57] LABS: Clarity SL HAZY (Clear)
[2019-06-30 16:59] LABS: Pregnancy Test - Urine (BHCG) Negative (Negative); Pregu Control Background? CLEAR/WHITE (CLR/WHITE); Pregu Control Bar Appear? YES (CONTROL BAR); Specific Gravity 1.015 (1.002-1.036)
== END 2019-06-30 17:06 | disposition home or self-care (01) ==
LOC: NAV ERS 15:53
DX: R11.2 Nausea with vomiting, unspecified (principal); F41.9 Anxiety disorder, unspecified
CPT/HCPCS: 81003; 81025; 99284; Q0162

== ENCOUNTER 2019-07-07 09:02 | Emergency (ER) | payer SELFPAY ==
[2019-07-07] MEDS ORDERED: Ibuprofen 800 MG TAB ONE (09:13)
== END 2019-07-07 09:34 | disposition home or self-care (01) ==
LOC: NAV ERS 09:02
DX: B34.9 Viral infection, unspecified (principal); F41.9 Anxiety disorder, unspecified
CPT/HCPCS: 99283

== ENCOUNTER 2019-08-26 13:50 | Emergency (ER) | payer SELFPAY | END 2019-08-26 14:34 | disposition home or self-care (01) | LOC: NAV ERS 13:50 | DX: R51 Headache (principal); R60.9 Edema, unspecified; F41.9 Anxiety disorder, unspecified; K05.10 Chronic gingivitis, plaque induced | CPT/HCPCS: 99283 ==

== ENCOUNTER 2020-02-17 14:38 | Emergency (ER) | payer SELFPAY ==
--- NOTE | 2020-02-17 15:06 | RAD ---
PORTABLE CHEST: Date: 02/17/2020 HISTORY: Chest pain. COMPARISON: 07/09/2019 exam. FINDINGS: Heart size is within normal limits considering the portable technique. No confluent infiltrative proc ess. Slightly increased density in the bases, but I think this is probably just related to overlying soft tissue. I have no history that would suggest the possibility of ground-glass infiltrates. Clinic al correlation recommended. There are scoliotic changes of the spine. IMPRESSION: Subtle increased densities in the lung bases. I favor this is just related to overlying soft tissue a s discussed above. POS: [facility]
[2020-02-17 15:20] LABS: #Basophils 0.2 thou/uL (0.0-0.2); #Eosinphils 0.8 thou/uL (0.0-0.7); #Lymphocytes 2.2 thou/uL (1.20-3.40); #Monocytes 0.4 thou/uL (0.11-0.59); #Neutrophils 3.4 thou/uL (1.40-6.50); %Basophils 2.4 % (0.0-1.0); %Eosinophils 11.2 % (0.0-10.0); %Lymphocytes 31.4 % (21.0-51.0); %Monocytes 6.4 % (0.0-10.0); %Neutrophils 48.7 % (42.0-75.0); Hemoglobin 13.4 g/dL (12.0-16.0); Mean Corpuscular HGB CONC 30.8 g/dL (32.0-36.0); Mean Corpuscular Hemoglobin 26.1 pg (27.0-31.0); Mean Corpuscular Volume 84.8 fL (78.0-98.0); Mean Platelet Volume 7.6 fL (7.4-10.4); Platelet Count 315 thou/uL (130-400); RBC Distribution Width 11.7 % (11.5-14.5); Red Blood Cell (RBC) Count 5.14 mill/uL (4.20-5.40); White Blood Cell (WBC) Count 6.9 thou/uL (4.8-10.8)
[2020-02-17 15:21] LABS: ALT (SGPT) 16 U/L (8-55); AST (SGOT) 18 U/L (5-34); Albumin 4.3 g/dL (3.5-5.0); Alkaline Phosphatase 101 U/L (40-110); Anion Gap 14 mmol/L (10-20); BUN (Urea Nitrogen) 10 mg/dL (7.0-18.7); Bilirubin, Total 0.4 mg/dL (0.2-1.2); Calc. Creatinine Clearance 0 mL/min (70-130); Calcium 9.5 mg/dL (7.8-10.44); Carbon Dioxide 24 mmol/L (22-29); Chloride 104 mmol/L (98-107); Estimated GFR-MDRD Greater than 90; Globulin 2.7 g/dL (2.4-3.5); Glucose 84 mg/dL (70-105); Potassium 3.9 mmol/L (3.5-5.1); Sodium 138 mmol/L (136-145)
[2020-02-17] MEDS ORDERED: Ibuprofen 800 MG TAB ONE (15:28)
== END 2020-02-17 15:36 | disposition home or self-care (01) ==
LOC: NAV ERS 14:38
DX: R07.9 Chest pain, unspecified (principal); Z20.828 Contact with and (suspected) exposure to other viral communicable diseases; F41.9 Anxiety disorder, unspecified
CPT/HCPCS: 71045; 80053; 84484; 85025; 85379; 93005; 94760

== ENCOUNTER 2020-09-24 13:06 | Emergency (ER) | payer SELFPAY | END 2020-09-24 14:50 | disposition home or self-care (01) | LOC: NAV ERS 13:06 | DX: F41.9 Anxiety disorder, unspecified (principal) | CPT/HCPCS: 99283 ==

== ENCOUNTER 2020-12-21 16:50 | Emergency (ER) | payer SELFPAY ==
[2020-12-21 17:42] LABS: #Basophils 0.1 thou/uL (0.0-0.2); #Eosinphils 0.1 thou/uL (0.0-0.7); #Lymphocytes 0.5 thou/uL (1.20-3.40); #Monocytes 0.4 thou/uL (0.11-0.59); #Neutrophils 6.2 thou/uL (1.40-6.50); %Basophils 1.2 % (0.0-1.0); %Eosinophils 0.8 % (0.0-10.0); Hemoglobin 15.4 g/dL (12.0-16.0); Mean Corpuscular HGB CONC 30.2 g/dL (32.0-36.0); Mean Corpuscular Hemoglobin 25.6 pg (27.0-31.0); Mean Corpuscular Volume 84.8 fL (78.0-98.0); Mean Platelet Volume 7.5 fL (7.4-10.4); Platelet Count 254 thou/uL (130-400); RBC Distribution Width 12.1 % (11.5-14.5); Red Blood Cell (RBC) Count 6.03 mill/uL (4.20-5.40); White Blood Cell (WBC) Count 7.3 thou/uL (4.8-10.8)
[2020-12-21] MEDS ORDERED: Mag-Al Plus 1200 MG/1200 MG/120 MG/30 ML UDCUP ONE (17:43)
[2020-12-21] MEDS ORDERED: Sodium Chloride 0.9% 1,000 ML ONE (17:43)
[2020-12-21] MEDS ORDERED: Lidocaine Viscous Sol 2% 15 ml UD Cup ONE (17:43)
[2020-12-21] MEDS ORDERED: Pantoprazole 40 MG VIAL ONE (17:43)
[2020-12-21] MEDS ORDERED: Ondansetron PF 4 MG/2 ML Vial ONE (17:43)
[2020-12-21 17:49] LABS: ALT (SGPT) 17 U/L (8-55); AST (SGOT) 16 U/L (5-34); Albumin 4.1 g/dL (3.5-5.0); Alkaline Phosphatase 69 U/L (40-110); Anion Gap 14 mmol/L (10-20); BUN (Urea Nitrogen) 12 mg/dL (7.0-18.7); Bilirubin, Total 0.6 mg/dL (0.2-1.2); Calc. Creatinine Clearance 0 mL/min (70-130); Calcium 9.3 mg/dL (7.8-10.44); Carbon Dioxide 19 mmol/L (22-29); Chloride 109 mmol/L (98-107); Globulin 3.5 g/dL (2.4-3.5); Glucose 97 mg/dL (70-105); Lipase 18 U/L (8-78); Potassium 4.5 mmol/L (3.5-5.1); Protein, Total 7.6 g/dL (6.0-8.3); Sodium 137 mmol/L (136-145)
[2020-12-21 18:57] LABS: Bilirubin Negative (Negative); Blood, Urine Negative (Negative); Clarity Clear (Clear); Glucose, Urine (Dipstick) Negative (Negative); Ketone, Urine 15 mg/dL (Negative); Leukocyte Negative (Negative); Nitrite Negative (Negative); Protein, Urine (Dipstick) Trace mg/dL (Neg-Trace); Urobilinogen 0.2 mg/dL (Less than 2); pH, Urine 8.5 (5.0-9.0)
[2020-12-21 19:07] LABS: Pregnancy Test - Urine (BHCG) Negative (Negative); Pregu Control Background? CLEAR/WHITE (CLR/WHITE); Pregu Control Bar Appear? YES (CONTROL BAR)
== END 2020-12-21 19:24 | disposition home or self-care (01) ==
LOC: NAV ERS 16:50
DX: K52.9 Noninfective gastroenteritis and colitis, unspecified (principal)
CPT/HCPCS: 80053; 81003; 81025; 83690; 85025; 96374; 96375; C9113; J2405; J7050

== ENCOUNTER 2021-04-29 15:32 | Emergency (ER) | payer OTHER, SELFPAY | END 2021-04-29 15:57 | disposition home or self-care (01) | LOC: NAV ERS 15:32 | DX: J06.9 Acute upper respiratory infection, unspecified (principal); Z86.16 Personal history of COVID-19 | CPT/HCPCS: 99281 ==

== ENCOUNTER 2021-09-18 12:12 | Emergency (ER) | payer SELFPAY ==
[2021-09-18] MEDS ORDERED: Ketorolac Tromethamine 30 MG/ML VIAL ONE (12:47)
[2021-09-18 13:22] LABS: ALT (SGPT) 13 U/L (8-55); AST (SGOT) 14 U/L (5-34); Acetaminophen Less than 10.0 mcg/mL (10.0-30.0); Albumin 3.9 g/dL (3.5-5.0); Alcohol Less than 10 mg/dL (Less than 10); Alkaline Phosphatase 66 U/L (40-110); Anion Gap 12 mmol/L (10-20); BUN (Urea Nitrogen) 9 mg/dL (7.0-18.7); Bilirubin, Total 0.6 mg/dL (0.2-1.2); Calc. Creatinine Clearance 0 mL/min (70-130); Calcium 9.1 mg/dL (7.8-10.44); Carbon Dioxide 23 mmol/L (22-29); Chloride 108 mmol/L (98-107); Globulin 3.1 g/dL (2.4-3.5); Glucose 85 mg/dL (70-105); Hemoglobin 14.2 g/dL (12.0-16.0); Mean Corpuscular Hemoglobin 25.9 pg (27.0-31.0); Mean Corpuscular Volume 86.3 fL (78.0-98.0); Mean Platelet Volume 8.2 fL (7.4-10.4); Platelet Count 281 thou/uL (130-400); Potassium 3.9 mmol/L (3.5-5.1); Red Blood Cell (RBC) Count 5.47 mill/uL (4.20-5.40); Salicylate Less than 8.0 mg/dL (15.0-30.0); Sodium 139 mmol/L (136-145); White Blood Cell (WBC) Count 4.1 thou/uL (4.8-10.8)
[2021-09-18 13:56] LABS: Bilirubin Negative (Negative); Blood, Urine Negative (Negative); Clarity Clear (Clear); Glucose, Urine (Dipstick) Negative (Negative); Ketone, Urine Negative (Negative); Leukocyte Negative (Negative); Nitrite Negative (Negative); Protein, Urine (Dipstick) Negative (Neg-Trace); Urobilinogen 0.2 mg/dL (Less than 2); pH, Urine 6.5 (5.0-9.0)
[2021-09-18 14:11] LABS: Band 1 % (5-11); Eosinophils 3 % (0-10); Lymphocytes 64 % (21-51); MDiff Complete? YES; Manual Diff?? YES; Monocytes 3 % (0-10); Neutrophil 29 % (42-75); Platelet Morphology Comment Appears Adequate; RBC Morphology Normal
[2021-09-18 14:14] LABS: Amphetamine Not Detected (NotDetected); Barbiturates Screen Not Detected (NotDetected); Benzodiazepine Screen Not Detected (NotDetected); Cocaine Metabolite Screen Not Detected (NotDetected); Medtox Control Line Valid? VALID (VALID); Methadone Not Detected (NotDetected); Methamphetamine Not Detected (NotDetected); Opiate Screen Not Detected (NotDetected); Oxycodone Screen Not Detected (NotDetected); Phencyclidine (PCP) Not Detected (NotDetected); THC/Cannabinoid Screen Not Detected (NotDetected); Tricyclic Screen Not Detected (NotDetected)
== END 2021-09-18 14:45 | disposition home or self-care (01) ==
LOC: NAV ERS 12:12
DX: M94.0 Chondrocostal junction syndrome [Tietze] (principal); Z86.16 Personal history of COVID-19
CPT/HCPCS: 71046; 80053; 80306; 80307; 81003; 84484; 85025; 93005; 96374; J1885

== ENCOUNTER 2021-11-06 03:50 | Emergency (ER) | payer SELFPAY ==
[2021-11-06] MEDS ORDERED: Ondansetron ODT 4 MG TAB ONE (04:05)
[2021-11-06] MEDS ORDERED: Sodium Chloride 0.9% 1,000 ML ONE (04:20)
[2021-11-06] MEDS ORDERED: Morphine 4 MG/ML VIAL ONE (04:20)
[2021-11-06] MEDS ORDERED: Pantoprazole 40 MG VIAL ONE (04:21)
[2021-11-06] MEDS ORDERED: Mag-Al Plus 1200 MG/1200 MG/120 MG/30 ML UDCUP ONE (04:50)
[2021-11-06] MEDS ORDERED: Ondansetron PF 4 MG/2 ML Vial ONE (04:52)
[2021-11-06 04:59] LABS: Bilirubin Negative (Negative); Blood, Urine Negative (Negative); Clarity Clear (Clear); Glucose, Urine (Dipstick) Negative (Negative); Ketone, Urine 80 mg/dL (Negative); Leukocyte Negative (Negative); Nitrite Negative (Negative); Protein, Urine (Dipstick) Trace mg/dL (Neg-Trace); pH, Urine 6.5 (5.0-9.0)
[2021-11-06 05:02] LABS: Pregnancy Test - Urine (BHCG) Negative (Negative); Pregu Control Background? CLEAR/WHITE (CLR/WHITE); Pregu Control Bar Appear? YES (CONTROL BAR)
[2021-11-06 05:06] LABS: ALT (SGPT) 17 U/L (8-55); AST (SGOT) 14 U/L (5-34); Albumin 4.2 g/dL (3.5-5.0); Alkaline Phosphatase 61 U/L (40-110); Anion Gap 15 mmol/L (10-20); BUN (Urea Nitrogen) 12 mg/dL (7.0-18.7); Bilirubin, Total 0.8 mg/dL (0.2-1.2); Calc. Creatinine Clearance 0 mL/min (70-130); Carbon Dioxide 22 mmol/L (22-29); Chloride 106 mmol/L (98-107); Globulin 2.9 g/dL (2.4-3.5); Glucose 99 mg/dL (70-105); Lipase 15 U/L (8-78); Potassium 3.8 mmol/L (3.5-5.1); Protein, Total 7.1 g/dL (6.0-8.3); Sodium 139 mmol/L (136-145)
[2021-11-06 05:21] LABS: #Basophils 0.1 thou/uL (0.0-0.2); #Eosinphils 0.1 thou/uL (0.0-0.7); #Lymphocytes 0.7 thou/uL (1.20-3.40); #Monocytes 0.5 thou/uL (0.11-0.59); #Neutrophils 6.7 thou/uL (1.40-6.50); %Basophils 1.2 % (0.0-1.0); %Eosinophils 0.9 % (0.0-10.0); %Monocytes 6.3 % (0.0-10.0); %Neutrophils 82.6 % (42.0-75.0); Hemoglobin 14.2 g/dL (12.0-16.0); Mean Corpuscular HGB CONC 30.2 g/dL (32.0-36.0); Mean Corpuscular Volume 86.1 fL (78.0-98.0); Mean Platelet Volume 7.2 fL (7.4-10.4); Platelet Count 260 thou/uL (130-400); RBC Distribution Width 12.3 % (11.5-14.5); Red Blood Cell (RBC) Count 5.48 mill/uL (4.20-5.40); White Blood Cell (WBC) Count 8.1 thou/uL (4.8-10.8)
== END 2021-11-06 05:42 | disposition home or self-care (01) ==
LOC: NAV ERS 03:50
DX: K21.9 Gastro-esophageal reflux disease without esophagitis (principal); Z86.16 Personal history of COVID-19
CPT/HCPCS: 36415; 80053; 81003; 81025; 83690; 85025; 96361; 96374; 96375; C9113; J2270; J2405; J7050; Q0162

== ENCOUNTER 2021-11-06 08:36 | Emergency (ER) | payer MEDICAID, SELFPAY ==
[2021-11-06] MEDS ORDERED: Iopamidol 370 76% 100 ML VIAL ONE (09:00)
[2021-11-06] MEDS ORDERED: Ondansetron PF 4 MG/2 ML Vial ONE (09:34)
[2021-11-06] MEDS ORDERED: Pantoprazole 40 MG VIAL ONE (09:34)
[2021-11-06 09:37] LABS: #Basophils 0.1 thou/uL (0.0-0.2); #Lymphocytes 0.5 thou/uL (1.20-3.40); #Monocytes 0.4 thou/uL (0.11-0.59); #Neutrophils 5.8 thou/uL (1.40-6.50); %Basophils 1.3 % (0.0-1.0); %Eosinophils 0.5 % (0.0-10.0); %Lymphocytes 7.9 % (21.0-51.0); %Monocytes 6.3 % (0.0-10.0); Hemoglobin 13.5 g/dL (12.0-16.0); Mean Corpuscular HGB CONC 30.5 g/dL (32.0-36.0); Mean Corpuscular Hemoglobin 26.3 pg (27.0-31.0); Mean Platelet Volume 7.5 fL (7.4-10.4); Platelet Count 284 thou/uL (130-400); RBC Distribution Width 12.3 % (11.5-14.5); Red Blood Cell (RBC) Count 5.12 mill/uL (4.20-5.40); White Blood Cell (WBC) Count 6.9 thou/uL (4.8-10.8)
[2021-11-06 09:48] LABS: ALT (SGPT) 16 U/L (8-55); AST (SGOT) 14 U/L (5-34); Alkaline Phosphatase 55 U/L (40-110); Anion Gap 14 mmol/L (10-20); BUN (Urea Nitrogen) 10 mg/dL (7.0-18.7); Bilirubin, Total 0.9 mg/dL (0.2-1.2); Calc. Creatinine Clearance 0 mL/min (70-130); Calcium 8.6 mg/dL (7.8-10.44); Carbon Dioxide 22 mmol/L (22-29); Chloride 108 mmol/L (98-107); Globulin 2.5 g/dL (2.4-3.5); Glucose 99 mg/dL (70-105); Potassium 3.8 mmol/L (3.5-5.1); Protein, Total 6.5 g/dL (6.0-8.3); Sodium 140 mmol/L (136-145)
[2021-11-06] MEDS ORDERED: Sucralfate 1 GM TAB ONE (10:12)
[2021-11-06] MEDS ORDERED: Mag-Al Plus 1200 MG/1200 MG/120 MG/30 ML UDCUP ONE (10:12)
== END 2021-11-06 11:15 | disposition home or self-care (01) ==
LOC: NAV ERS 08:36
DX: K29.00 Acute gastritis without bleeding (principal); K21.9 Gastro-esophageal reflux disease without esophagitis; Z86.16 Personal history of COVID-19
CPT/HCPCS: 74177; 96374; 96375; C9113; J2405; Q9967

== ENCOUNTER 2022-07-19 05:00 | Emergency (ER) | payer SELFPAY ==
[2022-07-19] MEDS ORDERED: Sodium Chloride 0.9% 1,000 ML ONE ×2 (05:32→08:09)
[2022-07-19] MEDS ORDERED: Ondansetron PF 4 MG/2 ML Vial ONE ×2 (05:32→07:39)
[2022-07-19 05:33] LABS: #Basophils 0.1 thou/uL (0.0-0.2); #Lymphocytes 0.4 thou/uL (1.20-3.40); #Monocytes 0.4 thou/uL (0.11-0.59); #Neutrophils 7.8 thou/uL (1.40-6.50); %Basophils 1.3 % (0.0-1.0); %Eosinophils 0.3 % (0.0-10.0); %Lymphocytes 4.5 % (21.0-51.0); %Neutrophils 89.8 % (42.0-75.0); Hemoglobin 15.8 g/dL (12.0-16.0); Mean Corpuscular HGB CONC 32.8 g/dL (32.0-36.0); Mean Corpuscular Hemoglobin 27.6 pg (27.0-31.0); Mean Corpuscular Volume 84.3 fl (78.0-98.0); Mean Platelet Volume 8.5 fL (7.4-10.4); Platelet Count 312 10x3/uL (130-400); RBC Distribution Width 11.8 % (11.5-14.5); Red Blood Cell (RBC) Count 5.72 mill/uL (4.20-5.40); White Blood Cell (WBC) Count 8.6 10x3/uL (4.8-10.8)
[2022-07-19 05:36] LABS: Bilirubin Small (Negative); Blood, Urine Negative (Negative); Clarity Clear (Clear); Glucose, Urine (Dipstick) Negative (Negative); Ketone, Urine 80 mg/dL (Negative); Leukocyte Negative (Negative); Nitrite Negative (Negative); Protein, Urine (Dipstick) 30 mg/dL (Neg-Trace); Urobilinogen 0.2 mg/dL (Less than 2)
[2022-07-19 05:37] LABS: Specific Gravity, Urine 1.025 (1.002-1.036)
[2022-07-19 05:39] LABS: Mucous/LPF 2+ LPF (<2+); RBC/HPF 0-3 HPF (0-3); WBC/HPF 0-3 HPF (0-3)
[2022-07-19] MEDS ORDERED: Ketorolac Tromethamine 30 MG/ML VIAL ONE (05:44)
[2022-07-19 06:36] LABS: ALT (SGPT) 22 U/L (8-55); AST (SGOT) 22 U/L (5-34); Albumin 4.5 g/dL (3.5-5.0); Alkaline Phosphatase 71 U/L (40-110); Anion Gap 16 mmol/L (10-20); BUN (Urea Nitrogen) 11 mg/dL (7.0-18.7); Bilirubin, Total 0.5 mg/dL (0.2-1.2); Calc. Creatinine Clearance 0 mL/min (70-130); Calcium 9.4 mg/dL (7.8-10.44); Carbon Dioxide 21 mmol/L (22-29); Chloride 106 mmol/L (98-107); Estimated GFR 90; Globulin 3.4 g/dL (2.4-3.5); Glucose 110 mg/dL (70-105); Lipase 9 U/L (8-78); Potassium 4.2 mmol/L (3.5-5.1); Protein, Total 7.9 g/dL (6.0-8.3); Sodium 139 mmol/L (136-145)
[2022-07-19 07:51] LABS: Pregnancy Test - Urine (BHCG) Negative (Negative); Pregu Control Background? CLEAR/WHITE (CLR/WHITE); Pregu Control Bar Appear? YES (CONTROL BAR); Specific Gravity 1.025 (1.002-1.036)
== END 2022-07-19 09:26 | disposition home or self-care (01) ==
LOC: NAV ERS 05:00
DX: A08.4 Viral intestinal infection, unspecified (principal); K21.9 Gastro-esophageal reflux disease without esophagitis
CPT/HCPCS: 80053; 81003; 81015; 81025; 83690; 85025; 96361; 96374; 96375; 96376; J1885; J2405; J7050

== ENCOUNTER 2022-09-17 07:22 | Emergency (ER) | payer SELFPAY | END 2022-09-17 07:55 | disposition home or self-care (01) | LOC: NAV ERS 07:22 | DX: J06.9 Acute upper respiratory infection, unspecified (principal); K21.9 Gastro-esophageal reflux disease without esophagitis | CPT/HCPCS: 99283 ==

== ENCOUNTER 2023-09-24 07:33 | Emergency (ER) | payer SELFPAY ==
[2023-09-24] MEDS ORDERED: Dexamethasone 4 mg/ml Vial ONE (08:56)
[2023-09-24 09:34] LABS: Pregnancy Test - Urine (BHCG) Negative (Negative); Pregu Control Background? CLEAR/WHITE (CLR/WHITE); Pregu Control Bar Appear? YES (CONTROL BAR)
[2023-09-24] MEDS ORDERED: Ketorolac Tromethamine 60 MG/2 ML VIAL ONE (09:55)
== END 2023-09-24 10:10 | disposition home or self-care (01) ==
LOC: NAV ERS 07:33
DX: J20.9 Acute bronchitis, unspecified (principal); Z86.16 Personal history of COVID-19
CPT/HCPCS: 71046; 81025; 96372; J1100; J1885

== ENCOUNTER 2023-09-30 04:28 | Emergency (ER) | payer SELFPAY ==
[2023-09-30] MEDS ORDERED: Lorazepam 0.5 MG TAB ONE (05:07)
== END 2023-09-30 06:30 | disposition home or self-care (01) ==
LOC: NAV ERS 04:28
DX: F41.9 Anxiety disorder, unspecified (principal)
CPT/HCPCS: 71046

== ENCOUNTER 2023-10-30 23:23 | Emergency (ER) | payer SELFPAY ==
[2023-10-30] MEDS ORDERED: Cephalexin 250 MG CAP ONE (23:51)
== END 2023-10-30 23:56 | disposition home or self-care (01) ==
LOC: NAV ERS 23:23
DX: L08.9 Local infection of the skin and subcutaneous tissue, unspecified (principal)
CPT/HCPCS: 99282

== ENCOUNTER 2025-04-18 07:45 | Emergency (ER) | payer OTHER | END 2025-04-18 09:10 | disposition home or self-care (01) | LOC: NAV ERS 07:45 | DX: J20.9 Acute bronchitis, unspecified (principal) | CPT/HCPCS: 71046; 87428; 93005 ==